=== PATIENT | male | born 1970 | race Caucasian/White ===

== ENCOUNTER 2016-08-03 17:31 | Inpatient (IN) | payer OTHER ==
[2016-08-03 17:39] VITALS: BMI 28.0
--- NOTE | 2016-08-03 20:02 | PDOC ---
History of Present Illness - General History Source: Patient <Luiz Noriega - Last Filed: 08/03/16 21:56> - General History Source: Patient Exam Limitations: No Limitations - History of Present Illness Initial Comments: 08/03/16 20:32 The patient is a 45 year old male with a significant past medical history of DVT on the right leg, pulmonary embolism, diabetes and asthma who presents to the ED with complaints of right leg swelling and right leg pain. The patient reports he was previously taking lovenox for years when his PCP changed him to xarelto several months ago. Patient reports right lower extremity edema that started several weeks ago. Patient also reports pain to the right lower extremity starting from his right mid thigh radiating to his right mid calf for several days. Patient also reports dull chest pain secondary to deep inspiration. Patient reports he stopped taking xarelto. Denies fever or chills. Denies shortness of breath or cough. Denies any other symptoms. <Jabier Antoine - Last Filed: 08/04/16 01:04> - General Chief Complaint: Pain, Acute Stated Complaint: RT LEG PAIN AND KNEE Time Seen by Provider: 08/03/16 19:56 Past History - Past Medical History Diabetes: Yes - Surgical History Abdominal Surgery: Yes (EXPLORATORY LAP) - Psycho/Social/Smoking Cessation Hx Suicidal Ideation: No Smoking Status: Yes Smoking History: Current every day smoker Number of Cigarettes Smoked Daily: 10 Information on smoking cessation initiated: No Hx Alcohol Use: Yes ("ONCE IN A WHILE") Drug/Substance Use Hx: No <Luiz Noriega - Last Filed: 08/03/16 21:56> <Jabier Antoine - Last Filed: 08/04/16 01:04> - Past Medical History Allergies/Adverse Reactions: Allergies Allergy/AdvReac Type Severity Reaction Status Date / Time Penicillins Allergy Verified 08/03/16 17:40 warfarin sodium Allergy Verified 08/03/16 17:40 [From Coumadin] Home Medications: Ambulatory Orders Doxycycline Hyclate [Vibratab -] 100 mg PO BID #14 tablet 07/15/12 Unobtainable Home Med List 0 dose .ROUTE UTDICT 07/15/12 Review of Systems - Review of Systems Able to Perform ROS?: Yes Comments:: 08/03/16 20:32 CONSTITUTIONAL: No reported: Fever, Chills, Diaphoresis, Generalized Weakness, Malaise, Loss of Appetite HEENT: No reported: Rhinorrhea, Nasal Congestion, Throat Pain, Throat Swelling, Difficulty Swallowing, Mouth Swelling, Ear Pain, Eye Pain, Visual Changes CARDIOVASCULAR: No reported: Chest Pain, Syncope, Palpitations, Irregular Heart Rate, Lightheadedness, Peripheral Edema RESPIRATORY: No reported: Cough, Shortness of Breath, SOB with Exertion, Orthopnea, Wheezing , Stridor, Hemoptysis GASTROINTESTINAL: No reported: Abdominal pain, Abdominal Distension, Nausea, Vomiting, Diarrhea, Constipation, Melena, Hematochezia GENITOURINARY: No reported: Dysuria, Frequency, Urgency, Hesitancy, Flank Pain, Genital Pain MUSCULOSKELETAL: No reported: Myalgia, Arthralgia, Joint Swelling, Back pain, Neck Pain EXTREMITIES: + right leg swelling, right leg pain SKIN: No reported: Rash, Itching, Pallor HEMEATOLOGIC/IMMUNOLOGIC: No reported: Easy Bleeding, Easy Bruising, Lymphadenopathy, Frequent infections ENDOCRINE: No reported: Unexplained Weight Gain, Unexplained Weight Loss, Heat Intolerance , Cold Intolerance NEUROLOGIC: No reported: Headache, Focal Weakness, Paresthesias, Vertigo, Lightheadedness, Unsteady Gait, Seizure, Mental Status Changes, Incontinence PSYCHIATRIC: No reported: Anxiety, Depression All Other Systems: Reviewed and Negative <Jabier Antoine - Last Filed: 08/04/16 01:04> *Physical Exam - Vital Signs Last Vital Signs Temp Pulse Resp BP Pulse Ox 98.4 F 84 16 124/76 100 08/03/16 17:36 08/03/16 17:36 08/03/16 17:36 08/03/16 17:36 08/03/16 17:36 <Luiz Noriega - Last Filed: 08/03/16 21:56> - Vital Signs Last Vital Signs Temp Pulse Resp BP Pulse Ox 98.4 F 84 16 124/76 100 08/03/16 17:36 08/03/16 17:36 08/03/16 17:36 08/03/16 17:36 08/03/16 17:36 - Physical Exam Comments: 08/03/16 20:33 GENERAL: + dandruff. Well developed, well nourished. Awake and alert. No acute distress. HEENT: Normocephalic, atraumatic. PERRLA, EOMI. No conjunctival pallor. Sclera are non- icteric. Moist mucous membranes. Oropharynx is clear. NECK: Supple. Full ROM. No JVD. Carotid pulses 2+ and symmetric, without bruits. No thyromegaly. No lymphadenopathy. CARDIOVASCULAR: Regular rate and rhythm. No murmurs, rubs, or gallops. Distal pulses are 2+ and symmetric. PULMONARY: No evidence of respiratory distress. Lungs clear to auscultation bilaterally. No wheezing, rales or rhonchi. ABDOMINAL: Soft. Non-tender. Non-distended. No rebound or guarding. No organomegaly. Normoactive bowel sounds. MUSCULOSKELETAL Normal range of motion at all joints. No bony deformities or tenderness. No CVA tenderness. EXTREMITIES: + right lower extremity swelling, tender to palpation on the medial aspect. No cyanosis. No clubbing. SKIN: + skin color changes on the distal aspect of the right lower extremity. Warm and dry. Normal capillary refill. No rashes. No jaundice. NEUROLOGICAL: Alert, awake, appropriate. Cranial nerves 2-12 intact. No deficits to light touch and temperature in face, upper extremities and lower extremities. No motor deficits in the in face, upper extremities and lower extremities. Normoreflexic in the upper and lower extremities. Normal speech. Toes are down- going bilaterally. Gait is normal without ataxia. PSYCHIATRIC: Cooperative. Good eye contact. Appropriate mood and affect. <Jabier Antoine - Last Filed: 08/04/16 01:04> Heart Score/ECG Review #1 08/04/16 01:04 Reviewed and interpreted by Dr. Noriega: Impression: Normal sinus rhythm at 73 bpm IL interval 166 ms QRS duration 100 ms <Jabier Antoine - Last Filed: 08/04/16 01:04> ED Treatment Course - LABORATORY CBC & Chemistry Diagram: 08/03/16 23:09 08/03/16 23:09 - RADIOLOGY Radiograph Interpretation: 08/03/16 21:41 US/DUPLEX VASCUL US 2LEGS Impression: Right leg DVT is identified There is no definite evidence of left leg DVT No prior imaging studies are available at this facility for direct comparison Reported by: Saurav Bray <Jabier Antoine - Last Filed: 08/04/16 01:04> Medical Decision Making - Medical Decision Making 08/03/16 21:56 Dr. Noriega: The scribe's documentation has been prepared under my direction and personally reviewed by me in its entirery. I confirm that the note above accurately reflects all work, treatment, procedures, and medical decision making performed by me. Patient with right lower We'll admit to [facility]. Dr. Dove place orders for patient's admission. <Luiz Noriega - Last Filed: 08/03/16 21:56> *DC/Admit/Observation/Transfer - Discharge Dispostion Admit: Yes <Luiz Noriega - Last Filed: 08/03/16 21:56> - Attestations Scribe Attestion: 08/03/16 20:33 Documentation prepared by Jabire Antoine, acting as medical science liaison for Luiz Noriega MD <Jabier Antoine - Last Filed: 08/04/16 01:04> Diagnosis at time of Disposition: Right leg DVT Qualifiers: Affected thrombotic vein of extremity: popliteal Chronicity: chronic Qualified Code(s): I82.531 - Chronic embolism and thrombosis of right popliteal vein - Referrals
[2016-08-03] MEDS ORDERED: ENOXAPARIN NA (PORCINE) 80 MG/0.8 ML DISP.SYRIN SQ SCH (22:30)
[2016-08-03 23:19] LABS: BASOPHIL 0.6 % (0-2.0); EOSINOPHIL 1.6 % (0-4.5); MCH 26.6 pg (25.7-33.7); MCHC 31.8 g/dl (32.0-35.9); MEAN CELL VOLUME 83.6 fl (80-96); MEAN PLT VOLUME 8.3 fl (7.5-11.1); NEUTROPHILS 50.7 % (42.8-82.8); PLATELET COUNT 292 K/MM3 (134-434); RDW 15.2 % (11.9-15.9)
[2016-08-03 23:46] LABS: ALBUMIN 3.9 g/dl (3.4-5.0); ALK PHOS 87 U/L (45-117); ANION GAP 12 (8-16); BILIRUBIN,TOTAL 0.5 mg/dL (0.2-1.0); CO2 27 mmol/L (21-32); CREATININE 1.2 mg/dL (0.7-1.3); GLUCOSE,RANDOM 92 mg/dL (74-106); SGPT/ALT 18 U/L (12-78); TOT PROT 7.7 g/dl (6.4-8.2)
[2016-08-03 23:49] LABS: TROPONIN I < 0.02 ng/ml (0.00-0.05)
[2016-08-03 23:58] LABS: INR 1.41 (0.82-1.09); PROTHROMBIN TIME (PATIENT) 15.6 SEC (9.98-11.88)
[2016-08-04 00:09] LABS: URINE APPEARANCE CLOUDY; URINE BILIRUBIN NEGATIVE (NEGATIVE); URINE BLOOD NEGATIVE (NEGATIVE); URINE COLOR YELLOW; URINE GLUCOSE (UA) NEGATIVE (NEGATIVE); URINE KETONE NEGATIVE (NEGATIVE); URINE LEUK ESTERASE NEGATIVE (NEGATIVE); URINE NITRITE NEGATIVE (NEGATIVE); URINE PROTEIN NEGATIVE (NEGATIVE); URINE UROBILINOGEN 4.0 E.U/dl E.U./dl (0.2-1.0)
[2016-08-04 00:26] LABS: SGOT/AST 22 U/L (15-37)
[2016-08-04] MEDS ORDERED: ACETAMINOPHEN 325 MG TABLET (FP) ONE (00:47)
[2016-08-04] MEDS ORDERED: oxyCODONE HCL 5 MG TABLET ONE (00:47)
[2016-08-04] MEDS: ACETAMINOPHEN 325 MG TABLET (FP) PO PRN ×3 (00:54→12:05)
[2016-08-04] MEDS: oxyCODONE HCL 5 MG TABLET PO PRN ×3 (00:54→12:02)
[2016-08-04] MEDS ORDERED: ENOXAPARIN NA (PORCINE) 80 MG/0.8 ML DISP.SYRIN SQ SCH (04:47)
[2016-08-04] MEDS ORDERED: APIXABAN 5 MG TABLET PO SCH ×2 (10:00)
--- NOTE | 2016-08-04 10:01 | HP ---
Admitting History and Physical - Past Medical History Pulmonary: Yes: Asthma, Pulmonary Embolus Heme/Onc: Yes: Hypercoaguable State, Other (DVT) Endocrine: Yes: Diabetes Mellitus - Smoking History Smoking history: Current every day smoker Aproximately how many cigarettes per day: 10 - Alcohol/Substance Use Hx Alcohol Use: Yes ("ONCE IN A WHILE") Home Medications - Allergies Allergies/Adverse Reactions: Allergies Allergy/AdvReac Type Severity Reaction Status Date / Time Penicillins Allergy Verified 08/03/16 17:40 warfarin sodium Allergy Verified 08/03/16 17:40 [From Coumadin] - Home Medications Home Medications: Ambulatory Orders Doxycycline Hyclate [Vibratab -] 100 mg PO BID #14 tablet 07/15/12 Unobtainable Home Med List 0 dose .ROUTE UTDICT 07/15/12 Review of Systems - Review of Systems Cardiovascular: denies: Chest Pain Respiratory: denies: SOB Gastrointestinal: reports: No Symptoms Genitourinary: reports: No Symptoms Musculoskeletal: reports: Extremity Pain (rt leg) Neurological: reports: No Symptoms Physical Examination Vital Signs: Vital Signs Temperature 97.4 F L 08/04/16 05:30 Pulse Rate 55 L 08/04/16 05:30 Respiratory Rate 18 08/04/16 01:15 Blood Pressure 109/55 08/04/16 05:30 O2 Sat by Pulse Oximetry (%) 97 08/04/16 01:15 Cardiovascular: Yes: Regular Rate and Rhythm Respiratory: Yes: Regular, CTA Bilaterally Gastrointestinal: Yes: Normal Bowel Sounds, Soft Extremities: Yes: Calf Tenderness, Other (varicose veins) Edema: Yes Edema: RLE: 2+ Neurological: Yes: Alert, Oriented Labs: CBC, BMP 08/03/16 23:09 08/03/16 23:09 Problem List - Problems (1) Right leg DVT Assessment/Plan: FAILED XARELTO LOVENOX 80 SQ BID CHECK PREVIOUS W/U HEM/VASCULAR Code(s): I82.401 - ACUTE EMBOLISM AND THOMBOS UNSP DEEP VEINS OF R LOW EXTREM Qualifiers: Affected thrombotic vein of extremity: popliteal Chronicity: acute Qualified Code(s): I82.431 - Acute embolism and thrombosis of right popliteal vein (2) Diabetes Assessment/Plan: BGM MONITOR Code(s): E11.9 - TYPE 2 DIABETES MELLITUS WITHOUT COMPLICATIONS (3) Asthma Assessment/Plan: NEBS Code(s): J45.909 - UNSPECIFIED ASTHMA, UNCOMPLICATED
[2016-08-04] MEDS ORDERED: PT OWN MED DRAWER 7, Y5N ONE (11:49)
[2016-08-04] MEDS ORDERED: ACETAMINOPHEN 325 MG TABLET (FP) PO PRN (12:08)
[2016-08-04] MEDS ORDERED: oxyCODONE HCL 5 MG TABLET PO PRN (12:08)
--- NOTE | 2016-08-04 13:55 | EKG ---
Test Reason : Blood Pressure : / mmHG Vent. Rate : 073 BPM Atrial Rate : 073 BPM P-R Int : 166 ms QRS Dur : 100 ms QT Int : 368 ms P-R-T Axes : 039 059 066 degrees QTc Int : 405 ms NORMAL SINUS RHYTHM NORMAL ECG NO PREVIOUS ECGS AVAILABLE Confirmed by MD MATT, SUE ([id number]) on 08/04/2016 1:54:55 PM Referred By: Overread By: SUE GUTIERREZ MD
--- NOTE | 2016-08-04 15:58 | CONSULT ---
Consult - text type - Consultation Consultation Note: The patient is a 45 year old male with a significant past medical history of DVT of the right leg, pulmonary embolism, diabetes and asthma who presents to the ED with complaints of right leg swelling and right leg pain. The patient reports he was previously taking lovenox for years when his PCP changed him to xarelto several months ago. Patient reports right lower extremity edema that started several weeks ago. Patient also reports pain to the right lower extremity starting from his right mid thigh radiating to his right mid calf for several days. Patient also reports dull chest pain on deep inspiration. Denies fever or chills. Denies shortness of breath or cough. Denies any other symptoms. 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 Also h/o PE. No ivc filter. Was on coumadin and was switched to lovenox due to failure??? per patient and then to Xeralto more recently over last several months Colonoscopy 3 yrs. ago - Surgical History Abdominal Surgery: Yes (EXPLORATORY LAP) - Psycho/Social/Smoking Cessation Hx Smoking Status: Yes Smoking History: Current every day smoker Number of Cigarettes Smoked Daily: 10 family h/o no bleeding/clotting diathesis. no cancer Allergies/Adverse Reactions: Allergies Allergy/AdvReac Type Severity Reaction Status Date / Time Penicillins Allergy Verified 08/03/16 17:40 warfarin sodium Allergy Verified 08/03/16 17:40 [From Coumadin] Home Medications: Ambulatory Orders Doxycycline Hyclate [Vibratab -] 100 mg PO BID #14 tablet 07/15/12 Unobtainable Home Med List 0 dose .ROUTE UTDICT 07/15/12 Current Medications Acetaminophen (Tylenol -) 650 mg PO Q6H PRN PRN Reason: FEVER OR PAIN Last Admin: 08/04/16 12:05 Dose: 325 mg Acetaminophen (Tylenol -) 325 mg PO Q4H PRN PRN Reason: PAIN Stop: 08/07/16 12:07 Docusate Sodium (Colace -) 300 mg PO HS PATRICIO Enoxaparin Sodium (Lovenox -) 90 mg SQ Q12H PATRICIO Oxycodone HCl (Roxicodone -) 5 mg PO Q6H PRN PRN Reason: PAIN Last Admin: 08/04/16 12:02 Dose: 5 mg Oxycodone HCl (Roxicodone -) 5 mg PO Q4H PRN PRN Reason: PAIN Phytonadione (Mephyton -) 5 mg PO DAILY PATRICIO Stop: 08/06/16 10:01 Last Admin: 08/04/16 17:19 Dose: 5 mg *Physical Exam - Vital Signs Last Vital Signs Temp Pulse Resp BP Pulse Ox 98.4 F 84 16 124/76 100 08/03/16 17:36 08/03/16 17:36 08/03/16 17:36 08/03/16 17:36 08/03/16 17:36 ED Treatment Course - LABORATORY CBC & Chemistry Diagram: 08/03/16 23:09 08/03/16 23:09 - RADIOLOGY Radiograph Interpretation: 08/03/16 21:41 US/DUPLEX VASCUL US 2LEGS Impression: Right leg DVT is identified There is no definite evidence of left leg DVT No prior imaging studies are available at this facility for direct comparison Reported by: Saurav Bray A/P 45 y/o male with h/o recurrent DVTs and PE over last 20 yrs., several times, denies noncompliance, mostly worked up at [place]. 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 He had been on coumadin which was switched to lovenox due to coumadin failure per patient? Denies noncompliance. Most reently on Xeralto for last few months. Reports he was taking Xeralto until 08/02. Has intermittent rectal bleeding. Last colonoscopy 3 yrs. ago. check stool occult. Hgb 14 Now on lovenox 90 mg SC bid Mildly elevated INR--for vit. K Needs lifelong a/c with periodic reevaluation of risk/benefits. IF unable to anticoagulate due to rectal bleeding may need ivc filter---will monitor clinical course Will discuss with GI team needs age appropriate cancer screening
[2016-08-04] MEDS: PHYTONADIONE 5 MG TABLET PO SCH (17:19)
[2016-08-04] MEDS: DOCUSATE SODIUM 100 MG CAPSULE (FP) PO SCH (21:48)
[2016-08-05] MEDS: ENOXAPARIN NA (PORCINE) 100 MG/1 ML DISP.SYRIN SQ SCH ×2 (00:13→11:38)
[2016-08-05] MEDS: ACETAMINOPHEN 325 MG TABLET (FP) PO PRN (03:06)
[2016-08-05 07:46] LABS: BASOPHIL 0.4 % (0-2.0); EOSINOPHIL 3.3 % (0-4.5); MCH 27.4 pg (25.7-33.7); MCHC 32.9 g/dl (32.0-35.9); MEAN CELL VOLUME 83.3 fl (80-96); MEAN PLT VOLUME 8.2 fl (7.5-11.1); NEUTROPHILS 34.3 % (42.8-82.8); PLATELET COUNT 254 K/MM3 (134-434); RDW 15.1 % (11.9-15.9); WHITE BLOOD COUNT 5.4 K/mm3 (4.0-10.0)
[2016-08-05 08:13] LABS: ALBUMIN 3.4 g/dl (3.4-5.0); ANION GAP 7 (8-16); BILIRUBIN,TOTAL 0.2 mg/dL (0.2-1.0); CALCIUM 8.6 mg/dL (8.5-10.1); CO2 27 mmol/L (21-32); CREATININE 0.9 mg/dL (0.7-1.3); GLUCOSE,RANDOM 91 mg/dL (74-106); SGOT/AST 11 U/L (15-37); SGPT/ALT 14 U/L (12-78); TOT PROT 6.5 g/dl (6.4-8.2)
[2016-08-05 08:18] LABS: INR 1.04 (0.82-1.09); PROTHROMBIN TIME (PATIENT) 11.5 SEC (9.98-11.88)
[2016-08-05 08:21] LABS: ACTIVATED PTT 35.6 SECONDS (26.9-34.4)
[2016-08-05 08:22] LABS: ALK PHOS 77 U/L (45-117); THYROID STIMULATING HORMONE 1.54 uIU/ml (0.358-3.74)
--- NOTE | 2016-08-05 10:36 | PN ---
Progress Note, Physician History of Present Illness: LEG PAIN - Current Medication List Current Medications: Active Medications Acetaminophen (Tylenol -) 650 mg PO Q6H PRN PRN Reason: FEVER OR PAIN Last Admin: 08/05/16 03:06 Dose: 650 mg Acetaminophen (Tylenol -) 325 mg PO Q4H PRN PRN Reason: PAIN Stop: 08/07/16 12:07 Docusate Sodium (Colace -) 300 mg PO HS PENDING SALE TO [facility] Last Admin: 08/04/16 21:48 Dose: 300 mg Enoxaparin Sodium (Lovenox -) 90 mg SQ Q12H PENDING SALE TO [facility] Last Admin: 08/05/16 00:13 Dose: 90 mg Oxycodone HCl (Roxicodone -) 5 mg PO Q6H PRN PRN Reason: PAIN Last Admin: 08/04/16 12:02 Dose: 5 mg Oxycodone HCl (Roxicodone -) 5 mg PO Q4H PRN PRN Reason: PAIN Last Admin: 08/05/16 03:05 Dose: 5 mg Phytonadione (Mephyton -) 5 mg PO DAILY PENDING SALE TO [facility] Stop: 08/06/16 10:01 Last Admin: 08/04/16 17:19 Dose: 5 mg - Objective Vital Signs: Vital Signs Temperature 97.8 F 08/05/16 06:00 Pulse Rate 70 08/05/16 06:00 Respiratory Rate 17 08/04/16 21:00 Blood Pressure 100/56 08/05/16 06:00 O2 Sat by Pulse Oximetry (%) 97 08/04/16 21:00 Cardiovascular: Yes: Regular Rate and Rhythm Respiratory: Yes: Regular, CTA Bilaterally Gastrointestinal: Yes: Normal Bowel Sounds, Soft Edema: Yes Edema: RLE: 2+ Labs: CBC, BMP 08/05/16 06:00 08/05/16 06:00 INR, PTT INR 1.04 (0.82-1.09) 08/05/16 06:00 Problem List - Problems (1) Right leg DVT Assessment/Plan: FAILED XARELTO LOVENOX 80 SQ BID CHECK PREVIOUS W/U HEM NOTED VASCULAR CONSULT Code(s): I82.401 - ACUTE EMBOLISM AND THOMBOS UNSP DEEP VEINS OF R LOW EXTREM Qualifiers: Affected thrombotic vein of extremity: popliteal Chronicity: acute Qualified Code(s): I82.431 - Acute embolism and thrombosis of right popliteal vein (2) Diabetes Assessment/Plan: BGM MONITOR Code(s): E11.9 - TYPE 2 DIABETES MELLITUS WITHOUT COMPLICATIONS (3) Asthma Assessment/Plan: NEBS Code(s): J45.909 - UNSPECIFIED ASTHMA, UNCOMPLICATED (4) Rectal bleed Assessment/Plan: HGB STABLE GI CONSULT Code(s): K62.5 - HEMORRHAGE OF ANUS AND RECTUM
[2016-08-05] MEDS: PHYTONADIONE 5 MG TABLET PO SCH (11:38)
[2016-08-05] MEDS ORDERED: PT OWN MED DRAWER 7, Y5N ONE (11:38)
[2016-08-05 12:05] LABS: FERRITIN 122.799 ng/ml (16.4-293.9)
--- NOTE | 2016-08-05 13:29 | CONSULT ---
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 WHEN I SAW PATIENT HE WAS UPSET THAT HIS DIET WAS CHANGED TO CLEAR LIQUID AND WANTS TO GO BACK ON SOLID FOOD. HE STATES THAT HE HAS NORMAL BM TODAY AND WHEN HE WAS CLEANING HIMSELF HE NOTICED BLOOD ON THE TOILET PAPER. THE WATER IN THE TOILET WAS PINK AND THERE WAS BLOOD ON THE STOOL . HE HAD NO RECTAL OR ANL PAIN. WHEN ASKED IF HE HAS HAD BLEEDING BEFORE HE STATES THAT HE CAN'T REMEMBER. HE HAD A COLONOSCOPY YEARS AGO. HE CAN NOT REMEMBER WHY BUT THINKS IT WAS NEGATIVE. HE HAS BEEN ON ANTICOAGULATION FOR YEASRS. HE STARTED ON COUMADIN BUT HAD A RARE REACTION TO IT AND IT WAS DISCONTINUED. HE WAS THEN PLACED ON XARELTO. I DO NOT KNOW IF HE HAS HAD RECURRENT CLOTS WHILE ON ANTICOAGULATION PRIOR TO THIS ADMISSION. HE HAS HAS HEMATURIA. IN [place] IT WAS RECENT RECOMMENDED THAT HE HAVE AN IVC FILTER PLACED BUT HE NEVER GOT AROUND TO IT. 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: Alzheimer's, CVA, Dementia, Migraine, Multiple Sclerosis, Peripheral Neuropathy, Parkinson's, Seizure, Syncope, TIA, Vertigo, Other Cardio/Vascular: Yes: Deep Vein Thrombosis, Other (CLOTTING DISORDER ( HYPERCOAGULABLE)) Pulmonary: Yes: Asthma, Pulmonary Embolus Gastrointestinal: No: Ascites, Cancer, Constipation, Crohn's Disease, Diverticulitis, Diverticulosis, Esophageal Varices, Gastritis, GERD, GI Bleed, Hemorrhoids, Hiatal Hernia, Inflamatory Bowel Disease, Irritable Bowel Disease, Pancreatitis, Peptic Ulcer Disease, Ulcerative Colitis, Other Hepatobiliary: No: Cirrhosis, Cholelithiasis, Cholecystitis, Choledocholithiasis , Hepatitis A, Hepatitis B, Hepatitis C, Other Renal/: Yes: Hematuria Heme/Onc: Yes: Hypercoaguable State Infectious Disease: No: AIDS, C-Diff, Herpes Zoster, HIV, MRSA, STD's, Tuberculosis, VREF, Other Psych: No: Addictions, Anxiety, Bipolar, Depression, Panic, Psychosis, Schizophrenia, Other Musculoskeletal: No: Bursitis, Chronic low back pain, Hemiparesis, Hemiplegia, Osteoarthritis, Paraplegia, Other Rheumatology: No: Fibromyalgia, Gout, Lupus, Rheumatoid Arthritis, Sarcoidosis, Vasculitis, Other ENT: No: Allergic Rhinitis, Sinusitis, Other Endocrine: Yes: Diabetes Mellitus - Alcohol/Substance Use Hx Alcohol Use: Yes ("ONCE IN A WHILE") - Smoking History Smoking history: Current every day smoker Aproximately how many cigarettes per day: 10 Home Medications - Allergies Allergies/Adverse Reactions: Allergies Allergy/AdvReac Type Severity Reaction Status Date / Time Penicillins Allergy Verified 08/03/16 17:40 warfarin sodium Allergy Verified 08/03/16 17:40 [From Coumadin] - Home Medications Home Medications: Ambulatory Orders Doxycycline Hyclate [Vibratab -] 100 mg PO BID #14 tablet 07/15/12 Unobtainable Home Med List 0 dose .ROUTE UTDICT 07/15/12 Family Disease History - Family Disease History Family History: Unremarkable Review of Systems - Review of Systems Constitutional: reports: No Symptoms Eyes: reports: No Symptoms HENT: reports: No Symptoms Neck: reports: No Symptoms Cardiovascular: reports: No Symptoms Respiratory: reports: No Symptoms Gastrointestinal: reports: Rectal Bleeding Genitourinary: reports: No Symptoms Musculoskeletal: reports: Extremity Pain, Muscle Pain, Other (LEG SWELLING) Physical Exam-GI Vital Signs: Vital Signs Temperature 97.8 F 08/05/16 06:00 Pulse Rate 70 08/05/16 06:00 Respiratory Rate 17 08/04/16 21:00 Blood Pressure 100/56 08/05/16 06:00 O2 Sat by Pulse Oximetry (%) 97 08/04/16 21:00 Constitutional: Yes: Other (UPSET ABOUT DIET) Eyes: Yes: Conjunctiva Clear HENT: Yes: Atraumatic Neck: Yes: WNL Cardiovascular: Yes: WNL Respiratory: Yes: WNL Gastrointestinal Inspection: Yes: WNL ...Auscultate: Yes: Normoactive Bowel Sounds ...Rectal Exam: Yes: Guaiac Negative, Other (NO MASS NO HEMORRHOIDS, NO STOOL IN VAULT BUTT BROWN MUCUS) Extremities: Yes: Calf Tenderness, Other (SWELLING) Labs: CBC, BMP 08/05/16 06:00 08/05/16 06:00 INR, PTT INR 1.04 (0.82-1.09) 08/05/16 06:00 Laboratory Tests 08/05/16 08/05/16 08/05/16 06:00 06:00 06:00 WBC 5.4 RBC 4.97 Hgb 13.6 Hct 41.4 MCV 83.3 MCHC 32.9 RDW 15.1 Plt Count 254 MPV 8.2 Neutrophils % 34.3 L D Lymphocytes % 50.2 H D Monocytes % 11.8 H Eosinophils % 3.3 D Basophils % 0.4 INR Sodium 141 Potassium 3.9 Chloride 107 Carbon Dioxide 27 Anion Gap 7 L BUN 17 Creatinine 0.9 D Creat Clearance w eGFR > 60 Random Glucose 91 Hemoglobin A1c % 6.3 H Calcium 8.6 Ferritin 122.799 Total Bilirubin 0.2 D AST 11 L D ALT 14 D Alkaline Phosphatase 77 TSH 1.54 08/05/16 06:00 WBC RBC Hgb Hct MCV MCHC RDW Plt Count MPV Neutrophils % Lymphocytes % Monocytes % Eosinophils % Basophils % INR 1.04 Sodium Potassium Chloride Carbon Dioxide Anion Gap BUN Creatinine Creat Clearance w eGFR Random Glucose Hemoglobin A1c % Calcium Ferritin Total Bilirubin AST ALT Alkaline Phosphatase TSH Problem List - Problems (1) Rectal bleed Assessment/Plan: BLEEDING SEEMS TO BE MINOR (HEMORRHOIDAL IRRITATION), HE IS GUAIAC NEGATIVE CHANGE DIET TO HIGHFIBER DIET WILL INVESTIGATE FURTHER IF BLEEDS AGAIN FOLLOW CBC Code(s): K62.5 - HEMORRHAGE OF ANUS AND RECTUM (2) Right leg DVT Assessment/Plan: PROBABLY SHOULD GET IVC FILTER, QUESTION COMPLIANCE WITH MEDICATION, THESES ISSUES PER HEMATOLOGY CONTINUE CURRENT RX Code(s): I82.401 - ACUTE EMBOLISM AND THOMBOS UNSP DEEP VEINS OF R LOW EXTREM Qualifiers: Affected thrombotic vein of extremity: popliteal Chronicity: acute Qualified Code(s): I82.431 - Acute embolism and thrombosis of right popliteal vein (3) Hypercoagulable state Code(s): D68.59 - OTHER PRIMARY THROMBOPHILIA (4) Asthma Code(s): J45.909 - UNSPECIFIED ASTHMA, UNCOMPLICATED (5) Diabetes Code(s): E11.9 - TYPE 2 DIABETES MELLITUS WITHOUT COMPLICATIONS
[2016-08-05] MEDS: oxyCODONE HCL 5 MG TABLET PO PRN (20:14)
[2016-08-05] MEDS: DOCUSATE SODIUM 100 MG CAPSULE (FP) PO SCH (21:41)
[2016-08-06] MEDS: ENOXAPARIN NA (PORCINE) 100 MG/1 ML DISP.SYRIN SQ SCH ×2 (00:01→11:25)
[2016-08-06] MEDS ORDERED: PT OWN MED DRAWER 7, Y5N ONE (09:01)
--- NOTE | 2016-08-06 09:19 | CONSULT ---
Addendum entered and electronically signed by Massiel Barnes PA 08/06/16 11:20: Dr. Darling spoke with Dr. Dove who takes care of the Mr. Garcia an an outpatient. The patient has a history of non-compliance, therefore the medical team wishes to place an IVC filter. He is npo after midnight for tomorrow. Original Note: Consultation: REQUESTING PROVIDER:For vascular surgery-Dr. Darling CONSULT REQUEST: We have been asked to surgically evaluate this patient for RLE DVT. HISTORY OF PRESENT ILLNESS:The patient is a 45 year male who states that he has been having blood clots for approximately 20 years. He has only had them in his RLE. He also has a history of PE. Over the years, he has been evaluated by a health service worker in [place] and states that he might have had a workup for a clotting disorder and was never diagnosed with a particular clotting disorder. He has taken coumadin in the past but has had a reaction to it? and until recently has been on lovenox. Currently he is taking Xarelto and has been taking his dose daily without any missed doses. His last PE was diagnosed in about 2014 and hasn't had any recent imaging of his RLE. No SOB/CP today. He does smoke 1/2 ppd of cigarettes. He RLE was swollen several days ago and the it became painful so came to the ER. Duplex reveals a RLE DVT. Also, Since admission he has had one episode of bright rectal bleeding with a BM, he hasn't had anymore bleeding but also hasn't had a bowel movement since then. PMHX: Diabetes, RLE DVT with PE, Asthma, Bowel cancer ?(several sessions of chemotherapy years ago), seizure disorder PSHX: Exp lap years ago, as above and was found to cancernous cells/recevied chemotherapy, colonoscopy several years ago-negative REVIEW OF SYSTEMS: CONSTITUTIONAL: Absent: fever, chills. CARDIOVASCULAR: Absent: chest pain, syncope Present: peripheral edema RESPIRATORY: Absent: cough, shortness of breath. GASTROINTESTINAL: Absent: abdominal pain, constipation. Present: blood per rectum with BM 2 days ago. GENITOURINARY: Absent: dysuria,hematuria MUSCULOSKELETAL: Absent: joint swelling, back pain, neck pain Present: RLE pain SKIN: Absent: rash, itching, pallor HEMATOLOGIC/IMMUNOLOGIC: Absent: easy bleeding, easy bruising, lymphadenopathy, frequent infections NEUROLOGIC: Absent: headache, focal weakness or paresthesias, PHYSICAL EXAMINATION Vital Signs Temperature 97.9 F 08/06/16 05:58 Pulse Rate 64 08/06/16 05:58 Respiratory Rate 18 08/06/16 05:58 Blood Pressure 100/60 08/06/16 05:58 O2 Sat by Pulse Oximetry (%) 95 08/05/16 21:00 GENERAL: Awake, alert, and fully oriented, in no acute distress. HEAD: Normal with no signs of trauma. EYES: Pupils equal, round and reactive to light, sclera anicteric, conjunctiva clear. LUNGS: Breath sounds equal, clear to auscultation bilaterally. No wheezes, and no crackles. No accessory muscle use. HEART: Regular rate and rhythm, normal S1 and S2 without murmur, rub or gallop. ABDOMEN: Soft, nontender, not distended, normoactive bowel sounds, no guarding, no rebound, no masses. MUSCULOSKELETAL: Normal range of motion at all joints. No bony deformities or tenderness. No CVA tenderness. UPPER EXTREMITIES: 2+ pulses, warm, well-perfused. No cyanosis. Cap refill <2 seconds. No peripheral edema. LOWER EXTREMITIES: 2+ pulses DP/PT, warm, well-perfused. mild tendneress RLE with palpation. RLE appears larger with varicosities at the ankle and right groin. LLE no tenderness or swelling/warm, DP/PT pulses. NEUROLOGICAL: Normal speech, gait not observed. PSYCH: Cooperative. Good eye contact. Appropriate mood and affect. SKIN: Warm, dry, normal turgor, no rashes or lesions noted. LABS: Laboratory Results - last 24 hr 08/05/16 08/05/16 08/05/16 06:00 06:00 11:10 Hemoglobin A1c % 6.3 H Ferritin 122.799 Cancelled US- DVT of femoral/popliteal and PT. Common femoral appears patent. No DVT to LLE. Problem List - Problems (1) Right leg DVT Assessment/Plan: Currently being treated with lovenox SQ 90mg bid S/w Dr. Darling and patient will require life/long anticoagulation. We were asked to evaluate this patient for a RLE DVT, the study mentions thrombus acute vs chonic? Dr. Darling to review the duplex study. Also noted was the development of some rectal bleeding, the medical team/ hematology are following the patient and monitoring for further rectal bleeding. If needed may place a filter but his base line hypercoaguable state is unknown and may cause further clot. Surgery to follow. Code(s): I82.401 - ACUTE EMBOLISM AND THOMBOS UNSP DEEP VEINS OF R LOW EXTREM Qualifiers: Affected thrombotic vein of extremity: popliteal Chronicity: acute Qualified Code(s): I82.431 - Acute embolism and thrombosis of right popliteal vein Visit type - Case Type Case Type: ED Admission - Emergency Emergency Visit: Yes ED Registration Date: 08/03/16 Care time: The patient presented to the Emergency Department on the above date and was hospitalized for further evaluation of their emergent condition. - New patient This patient is new to me today: Yes Date on this admission: 08/06/16 - Critical Care Critical Care patient: No
[2016-08-06] MEDS: PHYTONADIONE 5 MG TABLET PO SCH (09:42)
--- NOTE | 2016-08-06 11:09 | PN ---
Progress Note, Physician Chief Complaint: AWAKE ALERT ISSUES ON COUMADIN IN PAST EITHER NON-COMPLIANCE VERSUS ANTIBODY?? - Current Medication List Current Medications: Active Medications Acetaminophen (Tylenol -) 650 mg PO Q6H PRN PRN Reason: FEVER OR PAIN Last Admin: 08/05/16 03:06 Dose: 650 mg Acetaminophen (Tylenol -) 325 mg PO Q4H PRN PRN Reason: PAIN Stop: 08/07/16 12:07 Last Admin: 08/05/16 20:17 Dose: 325 mg Docusate Sodium (Colace -) 300 mg PO HS [facility] Last Admin: 08/05/16 21:41 Dose: 300 mg Enoxaparin Sodium (Lovenox -) 90 mg SQ Q12H [facility] Last Admin: 08/06/16 00:01 Dose: 90 mg Oxycodone HCl (Roxicodone -) 5 mg PO Q6H PRN PRN Reason: PAIN Last Admin: 08/05/16 20:14 Dose: 5 mg Oxycodone HCl (Roxicodone -) 5 mg PO Q4H PRN PRN Reason: PAIN Last Admin: 08/05/16 03:05 Dose: 5 mg - Objective Vital Signs: Vital Signs Temperature 97.9 F 08/06/16 05:58 Pulse Rate 64 08/06/16 05:58 Respiratory Rate 18 08/06/16 05:58 Blood Pressure 100/60 08/06/16 05:58 O2 Sat by Pulse Oximetry (%) 95 08/05/16 21:00 Constitutional: Yes: Mild Distress Eyes: Yes: WNL HENT: Yes: WNL Neck: Yes: WNL Cardiovascular: Yes: WNL Respiratory: Yes: WNL Gastrointestinal: Yes: WNL Genitourinary: Yes: WNL Musculoskeletal: Yes: WNL Extremities: Yes: WNL Edema: Yes Edema: RLE: 2+ Peripheral Pulses WNL: Yes Integumentary: Yes: WNL Wound/Incision: Yes: Clean/Dry Neurological: Yes: WNL ...Motor Strength: WNL Psychiatric: Yes: Other Labs: CBC, BMP 08/05/16 06:00 08/05/16 06:00 INR, PTT INR 1.04 (0.82-1.09) 08/05/16 06:00 Problem List - Problems (1) Asthma Code(s): J45.909 - UNSPECIFIED ASTHMA, UNCOMPLICATED Qualifiers: Asthma complication type: uncomplicated (2) Diabetes Code(s): E11.9 - TYPE 2 DIABETES MELLITUS WITHOUT COMPLICATIONS Qualifiers: Diabetes mellitus type: type 2 Diabetes mellitus complication status: with unspecified complications (3) Hypercoagulable state Code(s): D68.59 - OTHER PRIMARY THROMBOPHILIA (4) Right leg DVT Code(s): I82.401 - ACUTE EMBOLISM AND THOMBOS UNSP DEEP VEINS OF R LOW EXTREM Qualifiers: Affected thrombotic vein of extremity: popliteal Chronicity: acute Qualified Code(s): I82.431 - Acute embolism and thrombosis of right popliteal vein (5) Depression Code(s): F32.9 - MAJOR DEPRESSIVE DISORDER, SINGLE EPISODE, UNSPECIFIED Qualifiers: Major depression recurrence: recurrent Active/Remission status: currently active Psychotic features: without psychotic features Assessment/Plan NO SUICIDAL THOUGHTS NO HOMICIDAL PATTERNS NON-COMPLIANCE COUMADIN THERAPY? ON LOVENOX AND ELIQUIS STOP LOVENOC SHOULD HAVE IVC FILTER TO INADHERANCE TO MEDICATIONS AND OPTIMAL THERAPY
[2016-08-06 14:08] LABS: SERUM IRON 84 ug/dL (38-169); TOTAL IRON BINDING CAPACITY 274 ug/dL (250-450); UIBC 190 ug/dL (111-343)
[2016-08-06] MEDS: DOCUSATE SODIUM 100 MG CAPSULE (FP) PO SCH (21:27)
[2016-08-07] MEDS: ENOXAPARIN NA (PORCINE) 100 MG/1 ML DISP.SYRIN SQ SCH (00:02)
[2016-08-07] MEDS ORDERED: HEPARIN NA (PORCINE) 5,000 UNITS/ML 1ML VIAL ONE (07:39)
[2016-08-07] MEDS ORDERED: LIDOCAINE HCL 1%, 10 MG/ML (20ML VIAL) ONE (07:39)
[2016-08-07] MEDS ORDERED: PROPOFOL 20 ML ONE ×2 (09:53→09:56)
--- NOTE | 2016-08-07 10:19 | OP ---
Operative Note - Note: Operative Date: 08/07/16 Pre-Operative Diagnosis: DVT/PE Operation: Fluoroscopy under anesthesia Post-Operative Diagnosis: Same as Pre-op Surgeon: Сергей Darling Anesthesia: Fractional Estimated Blood Loss (mls): 0 Operative Report Dictated: Yes
--- NOTE | 2016-08-07 10:23 | PN ---
Progress Note (short form) - Note Progress Note: Vascular surgery Pt seen and examined. Pt went to OR Had fluorscopy before starting case. Fluorscopy showed IVC filter in place. image saved. Cont longterm AC. Cleared for DC from vascular standpoint. Сергей Darling DO
[2016-08-07] MEDS ORDERED: oxyCODONE HCL 5 MG TABLET PO PRN ×2 (10:28)
[2016-08-07] MEDS ORDERED: ACETAMINOPHEN 325 MG TABLET (FP) PO PRN ×2 (10:28)
[2016-08-07 10:35] VITALS: BP 101/63
--- NOTE | 2016-08-07 10:41 | OP ---
DATE OF OPERATION: 08/07/2016 PREOPERATIVE DIAGNOSIS: Deep venous thrombosis, pulmonary embolism. POSTOPERATIVE DIAGNOSIS: Deep venous thrombosis, pulmonary embolism. PROCEDURE: Fluoroscopy under anesthesia. SURGEON: Сергей Lomeli DO ANESTHESIA: Fractional. BLOOD LOSS: Zero. The patient is a 45-year-old male who comes in with a DVT, right lower extremity. He has a history of schizophrenia and does frequent a [facility]. He was on anticoagulation but seems like he stopped taking his anticoagulation and now has right lower extremity pain. Upon coming to the ER, he had a right lower extremity DVT, could be chronic, could be acute. Due to the fact that the patient is noncompliant, it was felt that the patient would need an IVC filter. Patient was consented for the procedure, understanding all risks, benefits, and alternatives and taken to the operating room. Prior to starting the procedure, patient received some anesthesia through his IV, and prior to starting, we went ahead and placed a fluoroscopy machine over his abdomen. Upon performing fluoroscopy, we were able to see that he has an IVC filter that is in place between L2 and L3. So, at this point, we decided that the procedure was no longer necessary, and patient was then taken off the operating room table and returned to the PACU in stable condition without any complications. Patient will now continue long-term anticoagulation and can be discharged home. СЕРГЕЙ LOMELI DO [employer]/[id number]
[2016-08-07] MEDS ORDERED: ENOXAPARIN NA (PORCINE) 100 MG/1 ML DISP.SYRIN SQ SCH (12:00)
[2016-08-07 14:11] VITALS: PULSE 74; TEMP 98.1
--- NOTE | 2016-08-07 15:27 | DS ---
Physical Examination Vital Signs: Vital Signs Temperature 98.1 F 08/07/16 14:00 Pulse Rate 74 08/07/16 14:00 Respiratory Rate 20 08/07/16 14:00 Blood Pressure 101/63 08/07/16 10:40 O2 Sat by Pulse Oximetry (%) 96 08/07/16 10:25 Constitutional: Yes: No Distress Eyes: Yes: WNL HENT: Yes: WNL Neck: Yes: WNL Cardiovascular: Yes: WNL Respiratory: Yes: WNL Gastrointestinal: Yes: WNL Renal/: Yes: WNL Musculoskeletal: Yes: WNL Extremities: Yes: Other Edema: Yes Edema: RLE: 1+ Peripheral Pulses WNL: Yes Integumentary: Yes: WNL Wound/Incision: Yes: Clean/Dry Neurological: Yes: WNL ...Motor Strength: WNL Psychiatric: Yes: WNL Labs: CBC, BMP 08/05/16 06:00 08/05/16 06:00 Discharge Summary Reason For Visit: RIGHT LEG DVT Current Active Problems Asthma (Acute) Depression (Acute) Diabetes (Acute) Hypercoagulable state (Acute) Rectal bleed (Acute) Right leg DVT (Acute) Procedures: Principal: doppler legs Other Procedures: admitted for ac and workup Hospital Course: heme/vasc sx workup, lovenox and dopplers done, f/u outpatient Condition: Improved - Instructions Diet, Activity, Other Instructions: reg Referrals: Jennifer Dove MD [Primary Care Provider] - Disposition: HOME - Home Medications Comprehensive Discharge Medication List: Ambulatory Orders Doxycycline Hyclate [Vibratab -] 100 mg PO BID #14 tablet 07/15/12 Unobtainable Home Med List 0 dose .ROUTE UTDICT 07/15/12 Acetaminophen [Tylenol .Regular Strength -] 650 mg PO Q6H PRN #0 tablet Docusate Sodium [Colace -] 300 mg PO HS capsule 08/07/16 Enoxaparin [Lovenox -] 90 mg SQ Q12H #60 disp.syrin 08/07/16 Phytonadione [Mephyton -] 5 mg PO DAILY tablet 08/07/16
[2016-08-07] MEDS ORDERED: DOCUSATE SODIUM 100 MG CAPSULE (FP) PO SCH (22:00)
== END 2016-08-07 17:04 | disposition home or self-care (01) | DRG 197 ==
LOC: JER 17:31 → JERBED 22:06 → J6S 08-04 01:08
PROVIDERS: ADMIT Family Medicine; ATTEND Family Medicine
PROC: B41FYZZ Fluoroscopy of Right Lower Extremity Arteries using Other Contrast (ICD-10-PCS; principal; 2016-08-07 11:00)
DX: I82.4Z1 Acute embolism and thrombosis of unspecified deep veins of right distal lower extremity (principal); I26.09 Other pulmonary embolism with acute cor pulmonale; J45.909 Unspecified asthma, uncomplicated; F32.9 Major depressive disorder, single episode, unspecified; E11.9 Type 2 diabetes mellitus without complications; D68.59 Other primary thrombophilia; F17.210 Nicotine dependence, cigarettes, uncomplicated
CPT/HCPCS: 36415; 71020-TC; 76000-TC; 80053; 81003; 82550; 82553; 82728; 83036; 83540; 83550; 84443; 84484; 85025; 85610; 85730; 86850; 86900; 86901; 93005; 93010; 93970-TC; 94760; 99283-25; J1644

== ENCOUNTER 2016-10-15 12:22 | Inpatient (IN) | payer OTHER ==
[2016-10-15] MEDS ORDERED: MAGNESIUM HYDROX 2400MG/30ML ORAL SUSPENSION 30 ML CUP PO PRN (15:01)
[2016-10-15] MEDS ORDERED: guaiFENesin/D-METHORPHAN HB 10 ML UNIT-DOSE CUPS PO PRN (15:01)
[2016-10-15] MEDS ORDERED: ACETAMINOPHEN 325 MG TABLET (FP) PO PRN (15:01)
[2016-10-15] MEDS ORDERED: NICOTINE POLACRILEX 4 MG GUM BUC PRN (15:01)
[2016-10-15] MEDS ORDERED: MAG HYDROX/AL HYDROX/SIMETH 30 ML UNIT-DOSE CUP PO PRN (15:01)
[2016-10-15] MEDS ORDERED: MENTHOL/PHENOL 1 EACH UD MM PRN (15:01)
[2016-10-15] MEDS ORDERED: IBUPROFEN 400 MG TABLET (FP) PO PRN (15:01)
[2016-10-15] MEDS ORDERED: P-EPHED 60MG/TRIPROLIDI 2.5MG TABLET PO PRN (15:01)
[2016-10-15] MEDS ORDERED: LOPERAMIDE HCL 2 MG CAPSULE PO PRN (15:01)
[2016-10-15] MEDS ORDERED: MAGNESIUM CITRATE 300 ML BOTTLE PO PRN (15:01)
[2016-10-15] MEDS ORDERED: diphenhydrAMINE HCL 50 MG CAPSULE PO PRN (15:01)
--- NOTE | 2016-10-15 15:05 | HP ---
Admission ROS [facility] Allergies/Adverse Reactions: Allergies Allergy/AdvReac Type Severity Reaction Status Date / Time Penicillins Allergy Rash Verified 10/15/16 12:46 warfarin sodium Allergy Rash Verified 10/15/16 12:46 [From Coumadin] - Ebola screening Have you traveled outside of the country in the last 21 days: No Have you had contact with anyone from an Ebola affected area: No Do you have a fever: No Patient History - Patient Medical History Hx Anemia: No Hx Asthma: Yes (albuterol inhaler) Hx Chronic Obstructive Pulmonary Disease (COPD): No Hx Cancer: No Hx Cardiac Disorders: No Hx Congestive Heart Failure: No Hx Hypertension: Yes (on medcaition) Hx Hypercholesterolemia: No Hx Pacemaker: No HX Cerebrovascular Accident: No Hx Seizures: Yes (last seizure episode was 06/2016) Hx Dementia: No Hx Diabetes: Yes (on med) Hx Gastrointestinal Disorders: No Hx Liver Disease: No Hx Genitourinary Disorders: No Hx Sexually Transmitted Disorders: No Hx Renal Disease (ESRD): No Hx Thyroid Disease: No Hx Human Immunodeficiency Virus (HIV): No (last 2015 negative) Hx Hepatitis C: No Hx Depression: Yes Hx Suicide Attempt: Yes (2012) Hx Bipolar Disorder: No Hx Schizophrenia: (schizoaffectiv edisorder) - Patient Surgical History Past Surgical History: Yes Hx Neurologic Surgery: No Hx Cataract Extraction: No Hx Cardiac Surgery: No Hx Lung Surgery: No Hx Breast Surgery: No Hx Breast Biopsy: No Hx Abdominal Surgery: Yes (EXPLORATORY LAP) Hx Appendectomy: No Hx Cholecystectomy: No Hx Genitourinary Surgery: No Hx Section: No Hx Orthopedic Surgery: No Hx Hysterectomy: No Other Surgical History: IVC filter 24 yrs ago. Anesthesia Reaction: No - PPD History Previous Implant?: Yes Documented Results: Negative w/proof Implanted On Prior R Admission?: Yes Date: 10/13/16 Results: 0 - Smoking Cessation Smoking history: Current every day smoker Have you smoked in the past 12 months: Yes Aproximately how many cigarettes per day: 20 Cigars Per Day: 0 Hx Chewing Tobacco Use: No Initiated information on smoking cessation: Yes 'Breaking Loose' booklet given: 10/15/16 - Substances Abused Alcohol Route: Oral Frequency: Daily Amount used: 2 liters whiskey/rum Age of first use: 19 Date of Last Use: 10/11/16 Cocaine Route: Inhalation Frequency: Daily Amount used: 2-3 grams Age of first use: 21 Date of Last Use: 10/10/16 [facility] Breath Alcohol Content Breath Alcohol Content: 0
[2016-10-15] MEDS ORDERED: ENOXAPARIN NA (PORCINE) 100 MG/1 ML DISP.SYRIN SQ SCH (15:15)
--- NOTE | 2016-10-15 15:15 | HP ---
Psychiatrist Admission - Data Date of interview: 10/15/16 Admission source: 3N Identifying data: This is the first 5N inpatient rehabilitation admission fo this 46 y/o male, who is single with 2 children (22 and 6 y/o) , domiciled residing in [facility],unemployed and supported on SSI benefits. Medical History: Asthma, DVT right leg, seizure, DM, IVC filter, HTN, exploratory laporitomy, smokes cigarettes 1PPD. Psychiatric History: Patient reports was diagnosed as Schizoaffective disorder, more than 5 psychiatric hospitalizations, first admission at [facility] when was at age of 17 to address depression, auditory hallucinations and suicidal thoughts, reports most recent hospitalization in August at [facility] to address deepression. Sees the psychiatrist at [facility] and currently on Seroquel 100 mg po hs and Prozac 40 mg po daily, was seen by while in detox and continued his medications. REports history of self-mutilations , reports it was "long time ago", patient has scras on his left arm. Physical/Sexual Abuse/Trauma History: denies history of sexual, phisical and verbal abuse. Allergies/Adverse Reactions: Allergies Allergy/AdvReac Type Severity Reaction Status Date / Time Penicillins Allergy Rash Verified 10/15/16 12:46 warfarin sodium Allergy Rash Verified 10/15/16 12:46 [From Coumadin] Date of last physical exam: 10/11/16 Concur with the findings of this exam: Yes - Substance Abuse/Tx History Hx Alcohol Use: Yes (wiskey/rum 2 liters) Hx Substance Use: Yes Substance Use Type: Cocaine (2 gr a day) Hx Substance Use Treatment: Yes ([place], complted trx and was in sobriety 11 years.) - Admission Criteria Previous failed treatment: Yes Poor recovery environment: Yes Comorbidities: Yes Lacks judgement: Yes Mental Status Exam - Mental Status Exam Alert and Oriented to: Time, Place, Person Cognitive Function: Good Patient Appearance: Well Groomed Mood: Sad, Anxious Affect: Appropriate, Mood Congruent Patient Behavior: Cooperative Speech Pattern: Clear, Appropriate Voice Loudness: Normal Thought Process: Intact Thought Disorder: Not Present Hallucinations: Denies Suicidal Ideation: Denies Homicidal Ideation: Denies Insight/Judgement: Fair Sleep: Poorly, Difficulty falling asleep Appetite: Fair Muscle strength/Tone: Normal Gait/Station: Normal Psychiatric Findings - Problem List ([place] 1, 2,3) (1) Cocaine dependence Current Visit: No Status: Acute Qualifiers: Substance use status: uncomplicated Qualified Code(s): F14.20 - Cocaine dependence, uncomplicated (2) Nicotine dependence Current Visit: No Status: Acute Qualifiers: Nicotine product type: cigarettes Substance use status: in withdrawal Qualified Code(s): F17.213 - Nicotine dependence, cigarettes, with withdrawal (3) Asthma Current Visit: No Status: Chronic Qualifiers: Asthma complication type: uncomplicated (4) DM2 (diabetes mellitus, type 2) Current Visit: No Status: Chronic (5) Right leg DVT Current Visit: No Status: Chronic Qualifiers: Affected thrombotic vein of extremity: popliteal Chronicity: acute Qualified Code(s): I82.431 - Acute embolism and thrombosis of right popliteal vein (6) Schizoaffective disorder Current Visit: No Status: Chronic (7) Seizure Current Visit: No Status: Chronic (8) Alcohol dependence Current Visit: Yes Status: Acute - Initial Treatment Plan Initial Treatment Plan: will continue his current medications, will add Trazodone 50 mg po hs, patient reports a good past response.
[2016-10-15] MEDS: glipiZIDE 5 MG TABLET (FP) PO SCH (17:24)
[2016-10-15] MEDS: ENOXAPARIN NA (PORCINE) 100 MG/1 ML DISP.SYRIN SQ SCH (21:46)
[2016-10-15] MEDS: QUEtiapine FUMARATE 100 MG TABLET (FP) PO SCH (21:47)
[2016-10-15] MEDS: traZODone HCL 50 MG TABLET (FP) PO SCH (21:47)
[2016-10-15] MEDS: THIAMINE HCL 100 MG TABLET (FP) PO SCH (21:47)
[2016-10-15] MEDS: PHENYTOIN NA EXTENDED 100 MG CAPSULE (FP) PO SCH (21:47)
[2016-10-16] MEDS: glipiZIDE 5 MG TABLET (FP) PO SCH ×2 (06:20→17:00)
[2016-10-16] MEDS: PRENATAL VITAMINS W/ FOLIC ACID TABLET (FP) PO SCH (09:45)
[2016-10-16] MEDS: FLUoxetine HCL 20 MG CAPSULE (FP) PO SCH (09:45)
[2016-10-16] MEDS: PHENYTOIN NA EXTENDED 100 MG CAPSULE (FP) PO SCH ×2 (09:46→21:34)
[2016-10-16] MEDS: ENOXAPARIN NA (PORCINE) 100 MG/1 ML DISP.SYRIN SQ SCH ×2 (09:46→21:34)
[2016-10-16] MEDS: NICOTINE 21 MG/24 HOURS TOPICAL PATCH TD SCH (09:49)
[2016-10-16] MEDS ORDERED: PHENYTOIN NA EXTENDED 100 MG CAPSULE (FP) PO ONE (15:19)
[2016-10-16] MEDS: traZODone HCL 50 MG TABLET (FP) PO SCH (21:33)
[2016-10-16] MEDS: QUEtiapine FUMARATE 100 MG TABLET (FP) PO SCH (21:33)
[2016-10-16] MEDS: THIAMINE HCL 100 MG TABLET (FP) PO SCH (21:33)
[2016-10-17] MEDS: glipiZIDE 5 MG TABLET (FP) PO SCH ×2 (06:20→16:39)
[2016-10-17] MEDS: PHENYTOIN NA EXTENDED 100 MG CAPSULE (FP) PO SCH ×2 (09:54→21:17)
[2016-10-17] MEDS: PRENATAL VITAMINS W/ FOLIC ACID TABLET (FP) PO SCH (09:54)
[2016-10-17] MEDS: ENOXAPARIN NA (PORCINE) 100 MG/1 ML DISP.SYRIN SQ SCH ×2 (09:55→21:16)
[2016-10-17] MEDS: NICOTINE 21 MG/24 HOURS TOPICAL PATCH TD SCH (09:56)
[2016-10-17] MEDS: FLUoxetine HCL 20 MG CAPSULE (FP) PO SCH (09:57)
[2016-10-17] MEDS ORDERED: PHENYTOIN NA EXTENDED 100 MG CAPSULE (FP) PO ONE (16:00)
[2016-10-17] MEDS: QUEtiapine FUMARATE 100 MG TABLET (FP) PO SCH (21:16)
[2016-10-17] MEDS: traZODone HCL 50 MG TABLET (FP) PO SCH (21:16)
[2016-10-17] MEDS: THIAMINE HCL 100 MG TABLET (FP) PO SCH (21:16)
[2016-10-18] MEDS: PHENYTOIN NA EXTENDED 100 MG CAPSULE (FP) PO SCH ×3 (06:39→21:45)
[2016-10-18] MEDS: glipiZIDE 5 MG TABLET (FP) PO SCH ×2 (06:39→16:48)
[2016-10-18] MEDS: PRENATAL VITAMINS W/ FOLIC ACID TABLET (FP) PO SCH (10:23)
[2016-10-18] MEDS: NICOTINE 21 MG/24 HOURS TOPICAL PATCH TD SCH (10:23)
[2016-10-18] MEDS: FLUoxetine HCL 20 MG CAPSULE (FP) PO SCH (10:23)
[2016-10-18] MEDS: ENOXAPARIN NA (PORCINE) 100 MG/1 ML DISP.SYRIN SQ SCH ×2 (10:25→21:45)
[2016-10-18 15:12] LABS: INR 0.98 (0.82-1.09); PROTHROMBIN TIME (PATIENT) 10.8 SEC (9.98-11.88)
[2016-10-18] MEDS: traZODone HCL 50 MG TABLET (FP) PO SCH (21:45)
[2016-10-18] MEDS: QUEtiapine FUMARATE 100 MG TABLET (FP) PO SCH (21:45)
[2016-10-18] MEDS: THIAMINE HCL 100 MG TABLET (FP) PO SCH (21:45)
[2016-10-19] MEDS: PHENYTOIN NA EXTENDED 100 MG CAPSULE (FP) PO SCH ×3 (06:17→21:29)
[2016-10-19] MEDS: glipiZIDE 5 MG TABLET (FP) PO SCH ×2 (06:17→16:42)
[2016-10-19] MEDS: FLUoxetine HCL 20 MG CAPSULE (FP) PO SCH (09:53)
[2016-10-19] MEDS: NICOTINE 21 MG/24 HOURS TOPICAL PATCH TD SCH (09:53)
[2016-10-19] MEDS: PRENATAL VITAMINS W/ FOLIC ACID TABLET (FP) PO SCH (09:53)
[2016-10-19] MEDS: ENOXAPARIN NA (PORCINE) 100 MG/1 ML DISP.SYRIN SQ SCH ×2 (09:54→21:27)
[2016-10-19] MEDS: QUEtiapine FUMARATE 100 MG TABLET (FP) PO SCH (21:27)
[2016-10-19] MEDS: traZODone HCL 50 MG TABLET (FP) PO SCH (21:27)
[2016-10-19] MEDS: THIAMINE HCL 100 MG TABLET (FP) PO SCH (21:28)
[2016-10-20] MEDS: PHENYTOIN NA EXTENDED 100 MG CAPSULE (FP) PO SCH ×3 (06:46→21:13)
[2016-10-20] MEDS: glipiZIDE 5 MG TABLET (FP) PO SCH ×2 (06:46→16:43)
[2016-10-20] MEDS: ENOXAPARIN NA (PORCINE) 100 MG/1 ML DISP.SYRIN SQ SCH ×2 (10:04→21:13)
[2016-10-20] MEDS: FLUoxetine HCL 20 MG CAPSULE (FP) PO SCH (10:05)
[2016-10-20] MEDS: PRENATAL VITAMINS W/ FOLIC ACID TABLET (FP) PO SCH (10:05)
[2016-10-20] MEDS: NICOTINE 21 MG/24 HOURS TOPICAL PATCH TD SCH (10:05)
[2016-10-20] MEDS: traZODone HCL 50 MG TABLET (FP) PO SCH (21:13)
[2016-10-20] MEDS: THIAMINE HCL 100 MG TABLET (FP) PO SCH (21:13)
[2016-10-20] MEDS: QUEtiapine FUMARATE 100 MG TABLET (FP) PO SCH (21:13)
[2016-10-21] MEDS: PHENYTOIN NA EXTENDED 100 MG CAPSULE (FP) PO SCH ×3 (06:27→21:24)
[2016-10-21] MEDS: glipiZIDE 5 MG TABLET (FP) PO SCH ×2 (06:27→17:03)
[2016-10-21] MEDS: NICOTINE 21 MG/24 HOURS TOPICAL PATCH TD SCH (09:59)
[2016-10-21] MEDS: PRENATAL VITAMINS W/ FOLIC ACID TABLET (FP) PO SCH (09:59)
[2016-10-21] MEDS: FLUoxetine HCL 20 MG CAPSULE (FP) PO SCH (09:59)
[2016-10-21] MEDS: ENOXAPARIN NA (PORCINE) 100 MG/1 ML DISP.SYRIN SQ SCH ×2 (09:59→21:24)
[2016-10-21] MEDS: QUEtiapine FUMARATE 100 MG TABLET (FP) PO SCH (21:24)
[2016-10-21] MEDS: THIAMINE HCL 100 MG TABLET (FP) PO SCH (21:24)
[2016-10-21] MEDS: traZODone HCL 50 MG TABLET (FP) PO SCH (21:24)
[2016-10-22] MEDS: glipiZIDE 5 MG TABLET (FP) PO SCH ×2 (06:10→16:35)
[2016-10-22] MEDS: PHENYTOIN NA EXTENDED 100 MG CAPSULE (FP) PO SCH ×3 (06:10→21:32)
[2016-10-22] MEDS: ENOXAPARIN NA (PORCINE) 100 MG/1 ML DISP.SYRIN SQ SCH ×2 (10:04→21:35)
[2016-10-22] MEDS: PRENATAL VITAMINS W/ FOLIC ACID TABLET (FP) PO SCH (10:04)
[2016-10-22] MEDS: FLUoxetine HCL 20 MG CAPSULE (FP) PO SCH (10:05)
[2016-10-22] MEDS: NICOTINE 21 MG/24 HOURS TOPICAL PATCH TD SCH (10:05)
--- NOTE | 2016-10-22 15:42 | PN ---
Psychiatric Progress Note Vital Signs: Vital Signs Period Temp Pulse Resp BP Sys/[place] Pulse Ox Last 24 Hr 98.0 F 67 18-20 112/69 Date of Session: 10/22/16 Chief Complaint:: progress update HPI: Patient is addressing alcohol, cocane, nicotine dependence comorbid Schizoaffective disoder. ROS: WNL Current Medications: Active Medications Generic Name Dose Route Start Last Admin Trade Name Freq PRN Reason Stop Dose Admin Acetaminophen 650 mg 10/15/16 15:01 Tylenol - PO Q4H PRN FEVER OR PAIN Al Hydroxide/Mg Hydroxide 30 ml 10/15/16 15:01 Mylanta Oral Suspension - PO Q6H PRN DYSPEPSIA Diphenhydramine HCl 50 mg 10/15/16 15:01 Benadryl - PO HSMR1 PRN FOR ITCHING Enoxaparin Sodium 90 mg 10/22/16 22:00 Lovenox - SQ Q12H PATRICIO Eucalyptus/Menthol/Phenol/Sorbitol 1 each 10/15/16 15:01 Cepastat Lozenge - MM Q4H PRN SORE THROAT Fluoxetine HCl 40 mg 10/16/16 10:00 10/22/16 10:05 Prozac - PO 40 mg DAILY PATRICIO Administration Glipizide 5 mg 10/15/16 16:30 10/22/16 06:10 Glucotrol - PO 5 mg BID@0700,1630 PATRICIO Administration Guaifenesin 10 ml 10/15/16 15:01 Robitussin Dm - PO Q6H PRN COUGH Ibuprofen 400 mg 10/15/16 15:01 Motrin - PO Q6H PRN PAIN Loperamide HCl 4 mg 10/15/16 15:01 Imodium - PO Q6H PRN DIARRHEA Magnesium Hydroxide 30 ml 10/15/16 15:01 Milk Of Magnesia - PO DAILY PRN CONSTIPATION Nicotine 21 mg 10/16/16 10:00 10/22/16 10:05 Nicoderm Patch - TD 21 mg DAILY PATRICIO Administration Nicotine Polacrilex 4 mg 10/15/16 15:01 Nicorette Gum - BUC Q2H PRN NICOTINE REPLACEMENT RX Phenytoin Sodium 100 mg 10/17/16 22:00 10/22/16 14:04 Dilantin - PO 100 mg TID PATRICIO Administration Multivit/Folic Acid/Iron 1 tab 10/16/16 10:00 10/22/16 10:04 Vitamins (Sjr) - PO 1 tab DAILY PATRICIO Administration Pseudoephedrine/Triprolidine 1 combo 10/15/16 15:01 Actifed - PO TID PRN NASAL CONGESTION Quetiapine Fumarate 100 mg 10/15/16 22:00 10/21/16 21:24 Seroquel - PO 100 mg HS PATRICIO Administration Thiamine HCl 100 mg 10/15/16 22:00 10/21/16 21:24 Vitamin B1 - PO 100 mg HS PATRICIO Administration Trazodone HCl 50 mg 10/15/16 22:00 10/21/16 21:24 Desyrel - PO 50 mg HS PATRICIO Administration Current Side Effect: No Lab tests ordered: No Lab tests reviewed: Yes Provider note:: Patient was referred by a medical staudent because patient has questions about his current medications. Patient reported that was on risperdal , dapakote , lithium, remeron in the past, treports the "dcotrs kept changing medicatiosn due to the sied-effects or they were not effective" Patient reports he used to hear voice male voice who introduced himself as a Anuj, he was negative and one time he told the patient to take razor alexandria and swallow which patient did, states it was 10 years ago, he ended in the hospital and had a surgery. He asked if we could change his medications , states when he is home he takes medications 11 pm and next day he was sedated and had a difficult time to go to the work, patient agredd that Seroquel 100 mg po hs (his current med) effective, he does bnot feel paranoid, denies auditory hallucinations, he reports that he feels well and not sedated at all whlei in this treatment, patient was recommended to continue take medcation at 8 or 9 pm to avoid sedatio in am. Psychoeducations and supportive therapy provided, will continue to monitor progress. Total face to face time:: 45 Mental Status Exam - Mental Status Exam Alert and Oriented to: Time, Place, Person Cognitive Function: Good Patient Appearance: Well Groomed Mood: Hopeful Affect: Appropriate, Mood Congruent Patient Behavior: Appropriate, Cooperative Speech Pattern: Clear, Appropriate Voice Loudness: Normal Thought Process: Intact, Goal Oriented Thought Disorder: Not Present Hallucinations: Denies Suicidal Ideation: Denies Homicidal Ideation: Denies Insight/Judgement: Fair Sleep: Fair Appetite: Fair Muscle strength/Tone: Normal Gait/Station: Normal Psychiatric Treatment Plan - Problem List (1) Cocaine dependence Current Visit: No Qualifiers: Substance use status: uncomplicated Qualified Code(s): F14.20 - Cocaine dependence, uncomplicated (2) Nicotine dependence Current Visit: No Qualifiers: Nicotine product type: cigarettes Substance use status: in withdrawal Qualified Code(s): F17.213 - Nicotine dependence, cigarettes, with withdrawal (3) Asthma Current Visit: No Qualifiers: Asthma complication type: uncomplicated (4) DM2 (diabetes mellitus, type 2) Current Visit: No (5) Right leg DVT Current Visit: No Qualifiers: Affected thrombotic vein of extremity: popliteal Chronicity: acute Qualified Code(s): I82.431 - Acute embolism and thrombosis of right popliteal vein (6) Schizoaffective disorder Current Visit: No (7) Seizure Current Visit: No (8) Alcohol dependence Current Visit: Yes
[2016-10-22] MEDS: traZODone HCL 50 MG TABLET (FP) PO SCH (21:32)
[2016-10-22] MEDS: THIAMINE HCL 100 MG TABLET (FP) PO SCH (21:32)
[2016-10-22] MEDS: QUEtiapine FUMARATE 100 MG TABLET (FP) PO SCH (21:32)
[2016-10-23] MEDS: PHENYTOIN NA EXTENDED 100 MG CAPSULE (FP) PO SCH ×3 (06:15→21:14)
[2016-10-23] MEDS: glipiZIDE 5 MG TABLET (FP) PO SCH ×2 (06:15→17:08)
[2016-10-23] MEDS: PRENATAL VITAMINS W/ FOLIC ACID TABLET (FP) PO SCH (10:19)
[2016-10-23] MEDS: NICOTINE 21 MG/24 HOURS TOPICAL PATCH TD SCH (10:19)
[2016-10-23] MEDS: FLUoxetine HCL 20 MG CAPSULE (FP) PO SCH (10:19)
[2016-10-23] MEDS: ENOXAPARIN NA (PORCINE) 100 MG/1 ML DISP.SYRIN SQ SCH ×3 (10:20→21:14)
[2016-10-23] MEDS: QUEtiapine FUMARATE 100 MG TABLET (FP) PO SCH (21:14)
[2016-10-23] MEDS: traZODone HCL 50 MG TABLET (FP) PO SCH (21:14)
[2016-10-23] MEDS: THIAMINE HCL 100 MG TABLET (FP) PO SCH (21:14)
[2016-10-24] MEDS: glipiZIDE 5 MG TABLET (FP) PO SCH ×2 (06:21→16:50)
[2016-10-24] MEDS: PHENYTOIN NA EXTENDED 100 MG CAPSULE (FP) PO SCH ×3 (06:21→21:12)
[2016-10-24] MEDS: FLUoxetine HCL 20 MG CAPSULE (FP) PO SCH (10:06)
[2016-10-24] MEDS: PRENATAL VITAMINS W/ FOLIC ACID TABLET (FP) PO SCH (10:06)
[2016-10-24] MEDS: NICOTINE 21 MG/24 HOURS TOPICAL PATCH TD SCH (10:06)
[2016-10-24] MEDS: ENOXAPARIN NA (PORCINE) 100 MG/1 ML DISP.SYRIN SQ SCH ×2 (10:08→21:12)
[2016-10-24] MEDS: QUEtiapine FUMARATE 100 MG TABLET (FP) PO SCH (21:12)
[2016-10-24] MEDS: THIAMINE HCL 100 MG TABLET (FP) PO SCH (21:12)
[2016-10-24] MEDS: traZODone HCL 50 MG TABLET (FP) PO SCH (21:12)
[2016-10-25] MEDS: glipiZIDE 5 MG TABLET (FP) PO SCH ×2 (06:09→16:49)
[2016-10-25] MEDS: PHENYTOIN NA EXTENDED 100 MG CAPSULE (FP) PO SCH ×3 (06:09→21:12)
[2016-10-25] MEDS: ENOXAPARIN NA (PORCINE) 100 MG/1 ML DISP.SYRIN SQ SCH ×2 (10:17→21:12)
[2016-10-25] MEDS: NICOTINE 21 MG/24 HOURS TOPICAL PATCH TD SCH (10:18)
[2016-10-25] MEDS: FLUoxetine HCL 20 MG CAPSULE (FP) PO SCH (10:19)
[2016-10-25] MEDS: PRENATAL VITAMINS W/ FOLIC ACID TABLET (FP) PO SCH (10:19)
[2016-10-25] MEDS: QUEtiapine FUMARATE 100 MG TABLET (FP) PO SCH (21:12)
[2016-10-25] MEDS: traZODone HCL 50 MG TABLET (FP) PO SCH (21:12)
[2016-10-25] MEDS: THIAMINE HCL 100 MG TABLET (FP) PO SCH (21:12)
[2016-10-26] MEDS: PHENYTOIN NA EXTENDED 100 MG CAPSULE (FP) PO SCH ×3 (06:12→21:28)
[2016-10-26] MEDS: glipiZIDE 5 MG TABLET (FP) PO SCH ×2 (06:12→16:45)
[2016-10-26] MEDS: NICOTINE 21 MG/24 HOURS TOPICAL PATCH TD SCH (09:56)
[2016-10-26] MEDS: FLUoxetine HCL 20 MG CAPSULE (FP) PO SCH (09:56)
[2016-10-26] MEDS: PRENATAL VITAMINS W/ FOLIC ACID TABLET (FP) PO SCH (09:56)
[2016-10-26] MEDS: ENOXAPARIN NA (PORCINE) 100 MG/1 ML DISP.SYRIN SQ SCH ×2 (09:58→21:27)
[2016-10-26] MEDS: traZODone HCL 50 MG TABLET (FP) PO SCH (21:28)
[2016-10-26] MEDS: THIAMINE HCL 100 MG TABLET (FP) PO SCH (21:28)
[2016-10-26] MEDS: QUEtiapine FUMARATE 100 MG TABLET (FP) PO SCH (21:28)
[2016-10-27] MEDS: PHENYTOIN NA EXTENDED 100 MG CAPSULE (FP) PO SCH ×3 (06:21→21:50)
[2016-10-27] MEDS: glipiZIDE 5 MG TABLET (FP) PO SCH ×2 (07:54→16:36)
[2016-10-27] MEDS: ENOXAPARIN NA (PORCINE) 100 MG/1 ML DISP.SYRIN SQ SCH ×2 (10:04→21:52)
[2016-10-27] MEDS: FLUoxetine HCL 20 MG CAPSULE (FP) PO SCH (10:06)
[2016-10-27] MEDS: PRENATAL VITAMINS W/ FOLIC ACID TABLET (FP) PO SCH (10:06)
[2016-10-27] MEDS: NICOTINE 21 MG/24 HOURS TOPICAL PATCH TD SCH (10:06)
[2016-10-27] MEDS: THIAMINE HCL 100 MG TABLET (FP) PO SCH (21:50)
[2016-10-27] MEDS: traZODone HCL 50 MG TABLET (FP) PO SCH (21:50)
[2016-10-27] MEDS: QUEtiapine FUMARATE 100 MG TABLET (FP) PO SCH (21:50)
[2016-10-28] MEDS: PHENYTOIN NA EXTENDED 100 MG CAPSULE (FP) PO SCH ×3 (06:27→21:50)
[2016-10-28] MEDS: glipiZIDE 5 MG TABLET (FP) PO SCH ×2 (08:02→16:35)
[2016-10-28] MEDS: ENOXAPARIN NA (PORCINE) 100 MG/1 ML DISP.SYRIN SQ SCH ×2 (10:04→21:50)
[2016-10-28] MEDS: PRENATAL VITAMINS W/ FOLIC ACID TABLET (FP) PO SCH (10:04)
[2016-10-28] MEDS: NICOTINE 21 MG/24 HOURS TOPICAL PATCH TD SCH (10:04)
[2016-10-28] MEDS: FLUoxetine HCL 20 MG CAPSULE (FP) PO SCH (10:04)
[2016-10-28] MEDS ORDERED: ALBUTEROL SO4 6.7 GM HFA INHALER IH PRN (10:54)
[2016-10-28] MEDS: THIAMINE HCL 100 MG TABLET (FP) PO SCH (21:49)
[2016-10-28] MEDS: traZODone HCL 50 MG TABLET (FP) PO SCH (21:49)
[2016-10-28] MEDS: QUEtiapine FUMARATE 100 MG TABLET (FP) PO SCH (21:49)
[2016-10-29] MEDS: PHENYTOIN NA EXTENDED 100 MG CAPSULE (FP) PO SCH ×3 (06:18→21:05)
[2016-10-29] MEDS: glipiZIDE 5 MG TABLET (FP) PO SCH ×2 (06:18→16:38)
[2016-10-29] MEDS: FLUoxetine HCL 20 MG CAPSULE (FP) PO SCH (10:16)
[2016-10-29] MEDS: NICOTINE 21 MG/24 HOURS TOPICAL PATCH TD SCH (10:16)
[2016-10-29] MEDS: PRENATAL VITAMINS W/ FOLIC ACID TABLET (FP) PO SCH (10:16)
[2016-10-29] MEDS: ENOXAPARIN NA (PORCINE) 100 MG/1 ML DISP.SYRIN SQ SCH ×2 (10:17→21:05)
[2016-10-29] MEDS: THIAMINE HCL 100 MG TABLET (FP) PO SCH (21:05)
[2016-10-29] MEDS: traZODone HCL 50 MG TABLET (FP) PO SCH (21:05)
[2016-10-29] MEDS: QUEtiapine FUMARATE 100 MG TABLET (FP) PO SCH (21:05)
[2016-10-30] MEDS: glipiZIDE 5 MG TABLET (FP) PO SCH ×2 (06:25→16:46)
[2016-10-30] MEDS: PHENYTOIN NA EXTENDED 100 MG CAPSULE (FP) PO SCH ×3 (06:25→21:07)
[2016-10-30] MEDS: NICOTINE 21 MG/24 HOURS TOPICAL PATCH TD SCH (09:52)
[2016-10-30] MEDS: FLUoxetine HCL 20 MG CAPSULE (FP) PO SCH (09:52)
[2016-10-30] MEDS: PRENATAL VITAMINS W/ FOLIC ACID TABLET (FP) PO SCH (09:52)
[2016-10-30] MEDS: ENOXAPARIN NA (PORCINE) 100 MG/1 ML DISP.SYRIN SQ SCH ×2 (09:52→21:07)
[2016-10-30] MEDS: traZODone HCL 50 MG TABLET (FP) PO SCH (21:07)
[2016-10-30] MEDS: THIAMINE HCL 100 MG TABLET (FP) PO SCH (21:07)
[2016-10-30] MEDS: QUEtiapine FUMARATE 100 MG TABLET (FP) PO SCH (21:07)
[2016-10-31] MEDS: glipiZIDE 5 MG TABLET (FP) PO SCH ×2 (06:15→16:35)
[2016-10-31] MEDS: PHENYTOIN NA EXTENDED 100 MG CAPSULE (FP) PO SCH ×3 (06:15→21:40)
--- NOTE | 2016-10-31 09:08 | PN ---
Psychiatric Progress Note Vital Signs: Vital Signs Period Temp Pulse Resp BP Sys/[place] Pulse Ox Last 24 Hr 98.2 F 76 18-18 116/80 Date of Session: 10/31/16 Chief Complaint:: "anxiety, insomnia" HPI: Patient is addressing alcohol, cocane, nicotine dependence comorbid Schizoaffective disoder. ROS: Asthma, DVT right leg, seizure, DM, IVC filter, HTN medically managed. Current Medications: Active Medications Generic Name Dose Route Start Last Admin Trade Name Freq PRN Reason Stop Dose Admin Acetaminophen 650 mg 10/15/16 15:01 Tylenol - PO Q4H PRN FEVER OR PAIN Al Hydroxide/Mg Hydroxide 30 ml 10/15/16 15:01 Mylanta Oral Suspension - PO Q6H PRN DYSPEPSIA Albuterol Sulfate 2 puff 10/28/16 10:54 10/30/16 21:09 Ventolin Hfa Inhaler - IH 2 puff Q4H PRN Administration SHORT OF BREATH/WHEEZING Diphenhydramine HCl 50 mg 10/15/16 15:01 Benadryl - PO HSMR1 PRN FOR ITCHING Enoxaparin Sodium 90 mg 10/22/16 22:00 10/30/16 21:07 Lovenox - SQ 90 mg Q12H PATRICIO Administration Eucalyptus/Menthol/Phenol/Sorbitol 1 each 10/15/16 15:01 Cepastat Lozenge - MM Q4H PRN SORE THROAT Fluoxetine HCl 40 mg 10/16/16 10:00 10/30/16 09:52 Prozac - PO 40 mg DAILY PATRICIO Administration Glipizide 5 mg 10/15/16 16:30 10/31/16 06:15 Glucotrol - PO 5 mg BID@0700,1630 PATRICIO Administration Guaifenesin 10 ml 10/15/16 15:01 Robitussin Dm - PO Q6H PRN COUGH Ibuprofen 400 mg 10/15/16 15:01 Motrin - PO Q6H PRN PAIN Loperamide HCl 4 mg 10/15/16 15:01 Imodium - PO Q6H PRN DIARRHEA Magnesium Hydroxide 30 ml 10/15/16 15:01 Milk Of Magnesia - PO DAILY PRN CONSTIPATION Nicotine 21 mg 10/16/16 10:00 10/30/16 09:52 Nicoderm Patch - TD Not Given DAILY PATRICIO Nicotine Polacrilex 4 mg 10/15/16 15:01 Nicorette Gum - BUC Q2H PRN NICOTINE REPLACEMENT RX Phenytoin Sodium 100 mg 10/17/16 22:00 10/31/16 06:15 Dilantin - PO 100 mg TID PATRICIO Administration Multivit/Folic Acid/Iron 1 tab 10/16/16 10:00 10/30/16 09:52 Vitamins (Sjr) - PO 1 tab DAILY PATRICIO Administration Pseudoephedrine/Triprolidine 1 combo 10/15/16 15:01 Actifed - PO TID PRN NASAL CONGESTION Quetiapine Fumarate 100 mg 10/15/16 22:00 10/30/16 21:07 Seroquel - PO 100 mg HS PATRICIO Administration Thiamine HCl 100 mg 10/15/16 22:00 10/30/16 21:07 Vitamin B1 - PO 100 mg HS PATRICIO Administration Trazodone HCl 100 mg 10/31/16 09:07 Desyrel - PO HS PATRICIO Current Side Effect: No Lab tests ordered: No Lab tests reviewed: Yes Provider note:: The patient reports feeling anxious at nights and unable to sleep, will increase Trazodone 100 mg po hs. Patient reports no side-effects from current medications. Total face to face time:: 10 Mental Status Exam - Mental Status Exam Alert and Oriented to: Time, Place, Person Cognitive Function: Good Patient Appearance: Well Groomed Mood: Anxious Affect: Appropriate, Mood Congruent Patient Behavior: Appropriate, Cooperative Speech Pattern: Clear, Appropriate Voice Loudness: Normal Thought Process: Intact, Goal Oriented Thought Disorder: Not Present Hallucinations: Denies Suicidal Ideation: Denies Homicidal Ideation: Denies Insight/Judgement: Fair Sleep: Poorly, Difficulty falling asleep Appetite: Fair Muscle strength/Tone: Normal Gait/Station: Normal Psychiatric Treatment Plan - Problem List (1) Cocaine dependence Current Visit: No Qualifiers: Substance use status: uncomplicated Qualified Code(s): F14.20 - Cocaine dependence, uncomplicated (2) Nicotine dependence Current Visit: No Qualifiers: Nicotine product type: cigarettes Substance use status: in withdrawal Qualified Code(s): F17.213 - Nicotine dependence, cigarettes, with withdrawal (3) Asthma Current Visit: No Qualifiers: Asthma complication type: uncomplicated (4) DM2 (diabetes mellitus, type 2) Current Visit: No (5) Right leg DVT Current Visit: No Qualifiers: Affected thrombotic vein of extremity: popliteal Chronicity: acute Qualified Code(s): I82.431 - Acute embolism and thrombosis of right popliteal vein (6) Schizoaffective disorder Current Visit: No (7) Seizure Current Visit: No (8) Alcohol dependence Current Visit: Yes
[2016-10-31] MEDS: PRENATAL VITAMINS W/ FOLIC ACID TABLET (FP) PO SCH (10:03)
[2016-10-31] MEDS: FLUoxetine HCL 20 MG CAPSULE (FP) PO SCH (10:03)
[2016-10-31] MEDS: NICOTINE 21 MG/24 HOURS TOPICAL PATCH TD SCH (10:03)
[2016-10-31] MEDS: ENOXAPARIN NA (PORCINE) 100 MG/1 ML DISP.SYRIN SQ SCH ×2 (10:04→21:42)
[2016-10-31] MEDS: QUEtiapine FUMARATE 100 MG TABLET (FP) PO SCH (21:40)
[2016-10-31] MEDS: THIAMINE HCL 100 MG TABLET (FP) PO SCH (21:40)
[2016-10-31] MEDS ORDERED: traZODone HCL 100 MG TABLET (FP) PO SCH (22:00)
[2016-11-01] MEDS: glipiZIDE 5 MG TABLET (FP) PO SCH (06:23)
[2016-11-01] MEDS: PHENYTOIN NA EXTENDED 100 MG CAPSULE (FP) PO SCH (06:23)
[2016-11-01 06:48] VITALS: BP 131/89; PULSE 65; TEMP 97.8
[2016-11-01] MEDS: FLUoxetine HCL 20 MG CAPSULE (FP) PO SCH (09:42)
[2016-11-01] MEDS: NICOTINE 21 MG/24 HOURS TOPICAL PATCH TD SCH (09:42)
[2016-11-01] MEDS: PRENATAL VITAMINS W/ FOLIC ACID TABLET (FP) PO SCH (09:42)
[2016-11-01] MEDS: ENOXAPARIN NA (PORCINE) 100 MG/1 ML DISP.SYRIN SQ SCH (09:43)
--- NOTE | 2016-11-01 10:03 | PN ---
Psychiatric Progress Note Vital Signs: Vital Signs Period Temp Pulse Resp BP Sys/[place] Pulse Ox Last 24 Hr 97.8 F 65 18-20 131/89 Date of Session: 11/01/16 Chief Complaint:: discharge visit HPI: Patient is addressing alcohol, cocane, nicotine dependence comorbid Schizoaffective disoder. ROS: Asthma, DVT right leg, seizure, DM, IVC filter, HTN medically managed. Current Medications: Active Medications Generic Name Dose Route Start Last Admin Trade Name Freq PRN Reason Stop Dose Admin Acetaminophen 650 mg 10/15/16 15:01 Tylenol - PO Q4H PRN FEVER OR PAIN Al Hydroxide/Mg Hydroxide 30 ml 10/15/16 15:01 Mylanta Oral Suspension - PO Q6H PRN DYSPEPSIA Albuterol Sulfate 2 puff 10/28/16 10:54 10/30/16 21:09 Ventolin Hfa Inhaler - IH 2 puff Q4H PRN Administration SHORT OF BREATH/WHEEZING Diphenhydramine HCl 50 mg 10/15/16 15:01 10/31/16 21:41 Benadryl - PO 50 mg HSMR1 PRN Administration FOR ITCHING Enoxaparin Sodium 90 mg 10/22/16 22:00 11/01/16 09:43 Lovenox - SQ 90 mg Q12H PATRICIO Administration Eucalyptus/Menthol/Phenol/Sorbitol 1 each 10/15/16 15:01 Cepastat Lozenge - MM Q4H PRN SORE THROAT Fluoxetine HCl 40 mg 10/16/16 10:00 11/01/16 09:42 Prozac - PO 40 mg DAILY PATRICIO Administration Glipizide 5 mg 10/15/16 16:30 11/01/16 06:23 Glucotrol - PO 5 mg BID@0700,1630 PATRICIO Administration Guaifenesin 10 ml 10/15/16 15:01 Robitussin Dm - PO Q6H PRN COUGH Ibuprofen 400 mg 10/15/16 15:01 Motrin - PO Q6H PRN PAIN Loperamide HCl 4 mg 10/15/16 15:01 Imodium - PO Q6H PRN DIARRHEA Magnesium Hydroxide 30 ml 10/15/16 15:01 Milk Of Magnesia - PO DAILY PRN CONSTIPATION Nicotine 21 mg 10/16/16 10:00 11/01/16 09:42 Nicoderm Patch - TD Not Given DAILY PATRICIO Nicotine Polacrilex 4 mg 10/15/16 15:01 Nicorette Gum - BUC Q2H PRN NICOTINE REPLACEMENT RX Phenytoin Sodium 100 mg 10/17/16 22:00 11/01/16 06:23 Dilantin - PO 100 mg TID PATRICIO Administration Multivit/Folic Acid/Iron 1 tab 10/16/16 10:00 11/01/16 09:42 Vitamins (Sjr) - PO 1 tab DAILY PATRICIO Administration Pseudoephedrine/Triprolidine 1 combo 10/15/16 15:01 Actifed - PO TID PRN NASAL CONGESTION Quetiapine Fumarate 100 mg 10/15/16 22:00 10/31/16 21:40 Seroquel - PO 100 mg HS PATRICIO Administration Thiamine HCl 100 mg 10/15/16 22:00 10/31/16 21:40 Vitamin B1 - PO 100 mg HS PATRICIO Administration Trazodone HCl 100 mg 10/31/16 22:00 10/31/16 21:40 Desyrel - PO 100 mg HS PATRICIO Administration Current Side Effect: No Lab tests ordered: No Lab tests reviewed: Yes Provider note:: Patient has completed today his treatment and met his goals. He will continue to address his issues at [facility] outpatient treatment program. Patent focused on importance of changing attitude for the utilization of supports to prevent relapses. His current medications wel tolerated, srcipts provided, patient is stable for discharge today. Total face to face time:: 25 Mental Status Exam - Mental Status Exam Alert and Oriented to: Time, Place Cognitive Function: Good Patient Appearance: Well Groomed Mood: Hopeful Affect: Appropriate, Mood Congruent Patient Behavior: Appropriate, Cooperative Speech Pattern: Clear, Appropriate Voice Loudness: Normal Thought Process: Intact, Goal Oriented Thought Disorder: Not Present Hallucinations: None, Denies Suicidal Ideation: None, Denies Homicidal Ideation: None Insight/Judgement: Good Sleep: Well Appetite: Good Muscle strength/Tone: Normal Gait/Station: Normal Psychiatric Treatment Plan - Problem List (1) Cocaine dependence Current Visit: No Qualifiers: Substance use status: uncomplicated Qualified Code(s): F14.20 - Cocaine dependence, uncomplicated (2) Nicotine dependence Current Visit: No Qualifiers: Nicotine product type: cigarettes Substance use status: in withdrawal Qualified Code(s): F17.213 - Nicotine dependence, cigarettes, with withdrawal (3) Asthma Current Visit: No Qualifiers: Asthma complication type: uncomplicated (4) DM2 (diabetes mellitus, type 2) Current Visit: No (5) Right leg DVT Current Visit: No Qualifiers: Affected thrombotic vein of extremity: popliteal Chronicity: acute Qualified Code(s): I82.431 - Acute embolism and thrombosis of right popliteal vein (6) Schizoaffective disorder Current Visit: No (7) Seizure Current Visit: No (8) Alcohol dependence Current Visit: Yes
== END 2016-11-01 10:15 | disposition home or self-care (01) | DRG 772 ==
LOC: YASAS 12:22 → Y5N 12:23
PROVIDERS: ADMIT Psychiatry & Neurology Psychiatry; ATTEND Psychiatry & Neurology Psychiatry
PROC: HZ42ZZZ Group Counseling for Substance Abuse Treatment, Cognitive-Behavioral (ICD-10-PCS; principal; 2016-10-15)
DX: F10.20 Alcohol dependence, uncomplicated (principal); F14.20 Cocaine dependence, uncomplicated; F17.213 Nicotine dependence, cigarettes, with withdrawal; F25.9 Schizoaffective disorder, unspecified; J45.909 Unspecified asthma, uncomplicated; I82.431 Acute embolism and thrombosis of right popliteal vein; I10 Essential (primary) hypertension; E11.9 Type 2 diabetes mellitus without complications; G40.909 Epilepsy, unspecified, not intractable, without status epilepticus; Z79.01 Long term (current) use of anticoagulants; Z95.828 Presence of other vascular implants and grafts
CPT/HCPCS: 36415; 80185; 85610

== ENCOUNTER 2018-05-14 10:04 | Emergency (ER) | payer OTHER ==
[2018-05-14 10:11] VITALS: BMI 41.0
--- NOTE | 2018-05-14 10:48 | PDOC ---
History of Present Illness - History of Present Illness Initial Comments: 05/14/18 13:14 Patient is a 47 year old male with a significant past medical history of schizoaffective disorder, Diabetes, Hypertension, Asthma, who presents to the ED with complaints of abdominal pain that began earlier this week. Patient reports experiencing diffuse abdominal pain as well as associated symptoms of decreased appetite, and constipation that began earlier this week and has gradually increased over time, prompting him to come into the ED for further evaluation. He reports being scheduled for routine bariatric surgery at [facility] on April 28 but states during the surgery it was cancelled due to scar tissue present. Patient reports feeling intermediate pain that began shortly after returning home. He reports after surgery he awoke in the ICU and received an EEG as well as an MRI with all results being negative. Patient reports x1 week after surgery experiencing a seizure episode, while at home, stating he suddenly woke in [facility]. Patient reports coming into the ED after being unable to sleep x3 days secondary to abdominal pain, stating he could not drive to [place] due to increase pain while driving. Denies chest pain, Sob. Denies nausea, vomiting. Denies contact with sick individuals, out of state travelling. Denies fevers, chills. Denies any other symptoms. Allergies: Flu virus, Penicillin. Coumadin Social history: Current smoker, Current alcohol use. No illicit drugs. Surgical history: Exploratory lap. PMD: Dr. Dove Surgeon: BOB Fink. [phone] <Tiburcio Mcgregor - Last Filed: 05/14/18 17:03> - General History Source: Patient Exam Limitations: No Limitations <Sola De Oliveira - Last Filed: 05/15/18 13:05> - General Chief Complaint: Urinary Problem Stated Complaint: POST OP PAIN Time Seen by Provider: 05/14/18 10:38 Past History <Tiburcio Mcgregor - Last Filed: 05/14/18 17:03> - Past Medical History Anemia: No Asthma: Yes (albuterol inhaler) Cancer: No Cardiac Disorders: No CVA: No COPD: No CHF: No Dementia: No Diabetes: Yes (on med) GI Disorders: No Disorders: No HTN: Yes (on medcaition) Hypercholesterolemia: No Kidney Stones: No Liver Disease: No Seizures: Yes (last seizure episode was 06/2016) Thyroid Disease: No - Surgical History Abdominal Surgery: Yes (EXPLORATORY LAP) Appendectomy: No Cardiac Surgery: No Cholecystectomy: No Lung Surgery: No Neurologic Surgery: No Orthopedic Surgery: No - Reproductive History Testicular Surgery: No - Suicide/Smoking/Psychosocial Hx Smoking Status: Yes Smoking History: Never smoked Have you smoked in the past 12 months: No Number of Cigarettes Smoked Daily: 20 Cigars Per Day: 0 Information on smoking cessation initiated: No 'Breaking Loose' booklet given: 10/15/16 Hx Alcohol Use: No Drug/Substance Use Hx: No Substance Use Type: Cocaine (2 gr a day) Hx Substance Use Treatment: Yes ([place], complted trx and was in sobriety 11 years.) <Sola De Oliveira - Last Filed: 05/15/18 13:05> - Past Medical History Allergies/Adverse Reactions: Allergies Allergy/AdvReac Type Severity Reaction Status Date / Time Influenza Virus Vaccines Allergy Verified 05/14/18 11:14 Penicillins Allergy Rash Verified 05/14/18 10:10 warfarin sodium Allergy Rash Verified 05/14/18 10:10 [From Coumadin] Home Medications: Ambulatory Orders Glipizide [Glucotrol -] 5 mg PO BID 10/11/16 Fluoxetine HCl [Prozac] 40 mg PO DAILY #60 capsule 10/29/16 traZODone HCL [Desyrel -] 50 mg PO HS #30 tablet 10/29/16 Albuterol Sulfate Inhaler - [Ventolin HFA Inhaler -] 2 puff IH Q4H PRN #1 inhaler 10/31/16 Enoxaparin [Lovenox -] 90 mg SQ Q12H #60 mg 10/31/16 Review of Systems - Review of Systems Able to Perform ROS?: Yes Comments:: 05/14/18 13:14 GENERAL/CONSTITUTIONAL: No: fever, chills, weakness, HEAD, EYES, EARS, NOSE AND THROAT: No: change in vision, ear pain, discharge, sore throat, throat swelling. CARDIOVASCULAR: No: chest pain, lightheadedness, palpitations, syncope RESPIRATORY: No: cough, shortness of breath, wheezing, hemoptysis, stridor. GASTROINTESTINAL: No: nausea, vomiting, diarrhea, rectal bleeding, GENITOURINARY: No: dysuria, hematuria, frequency, urgency, flank pain. MUSCULOSKELETAL: No: back pain, neck pain, joint pain, muscle swelling or pain SKIN: No: lesions, pallor, rash or easy bruising. NEUROLOGIC: No: headache, vertigo, paresthesias, weakness ENDOCRINE: No: unexplained weight gain or loss HEMATOLOGIC/LYMPHATIC: No: anemia, easy bleeding, swelling nodes <Tiburcio Mcgregor - Last Filed: 05/14/18 17:03> *Physical Exam - Vital Signs Last Vital Signs Temp Pulse Resp BP Pulse Ox 97.9 F 66 18 115/59 L 98 05/14/18 12:51 05/14/18 12:51 05/14/18 12:51 05/14/18 12:51 05/14/18 12:51 - Physical Exam Comments: 05/14/18 13:14 GENERAL: The patient is in no acute distress. HEAD: Normal with no signs of trauma. EYES: PERRLA, EOMI, sclera anicteric, conjunctiva clear. ENT: Ears normal, nares patent, oropharynx clear without exudates. Moist mucous membranes. NECK: Normal range of motion, supple without lymphadenopathy, JVD, or masses. LUNGS: Breath sounds equal, clear to auscultation bilaterally. No wheezes, and no crackles. HEART:Regular rate and rhythm, normal S1 and S2 without murmur, rub or gallop. ABDOMEN: Soft, nontender, normoactive bowel sounds. No guarding, no rebound. EXTREMITIES: Normal range of motion, no edema. No clubbing or cyanosis. No erythema, or tenderness. NEUROLOGICAL: Cranial nerves II through XII grossly intact. Normal speech. No focal neurological deficits. MUSCULOSKELETAL: Back nontender to palpation, no CVA tender <Tiburcio Mcgregor - Last Filed: 05/14/18 17:03> - Vital Signs Last Vital Signs Temp Pulse Resp BP Pulse Ox 98.4 F 85 16 120/83 98 05/14/18 10:08 05/14/18 10:08 05/14/18 10:08 05/14/18 10:08 05/14/18 10:08 <Sola De Oliveira - Last Filed: 05/15/18 13:05> ED Treatment Course - LABORATORY CBC & Chemistry Diagram: 05/14/18 11:26 05/14/18 11:26 - ADDITIONAL ORDERS Additional order review: Laboratory Results 05/14/18 05/14/18 05/14/18 12:30 11:26 11:26 PT with INR 12.70 INR 1.08 Sodium 139 Potassium 4.1 Chloride 108 H Carbon Dioxide 25 Anion Gap 7 L BUN 13 Creatinine 0.9 Creat Clearance w eGFR > 60 Random Glucose 199 H Calcium 8.9 Total Bilirubin 1.0 AST 9 L ALT 25 Alkaline Phosphatase 117 Total Protein 7.4 Albumin 3.5 Total Amylase 50 Lipase 165 Urine Color Martha Urine Appearance Clear Urine pH 6.0 Ur Specific Mitchell 1.031 Urine Protein 1+ H Urine Glucose (UA) Negative Urine Ketones Negative Urine Blood Negative Urine Nitrite Negative Urine Bilirubin 2.0 Urine Urobilinogen 4.0 e.u/dl Ur Leukocyte Esterase Negative Urine WBC (Auto) None Urine RBC (Auto) None Ur Epithelial Cells Rare Hyaline Casts 1 Urine Mucus Few 05/14/18 11:26 RBC 4.15 MCV 82.9 MCHC 31.5 L RDW 16.9 H MPV 6.8 L D Neutrophils % 69.1 D Lymphocytes % 20.0 D Monocytes % 9.4 Eosinophils % 0.9 Basophils % 0.6 - Medications Given in the ED: ED Medications Discontinued Medications Generic Name Dose Route Start Last Admin Trade Name Freq PRN Reason Stop Dose Admin Morphine Sulfate 4 mg 05/14/18 11:03 05/14/18 11:33 Morphine Injection - IVPUSH 05/14/18 11:04 4 mg ONCE ONE Administration <Tiburcio Mcgregor - Last Filed: 05/14/18 17:03> - LABORATORY CBC & Chemistry Diagram: 05/14/18 11:26 05/14/18 11:26 <Sola De Oliveira - Last Filed: 05/15/18 13:05> Medical Decision Making - Medical Decision Making Mr Garcia is a 47 yo M with a h/o Protein C deficiency h/o multiple DVTs, PE, s /p IVC filter currently on lovenox, lymphoma s/p splenectomy, 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, h/o seizure d/o Pt s/p attempted bariatric surgery 04/28, apparently they were unable to perform surgery (unclear why) Pt was admitted to the ICU for 1 week s/p this intervention, s/p MRI, EEG and Neuro consult (not started on antiepileptics) Pt apparently had a seizure 1 week after release from the hospital Pt resumed his lovenox 2 days s/p surgery Bruising had resolved several days s/p surgery Pt pain again resumed approximately 1 week ago Bruising worsened Pt states over the past 3 days, pain has worsened, it is sharp, rated between 7 and 11 No alleviating factors Pt pain worsens when he goes over the bumps in the road He is unable to have a bowel movement because it is so painful to do so He has decreased po intake Pt reports that he has to take shallow breaths 05/14/18 12:11 Laboratory Tests 05/14/18 05/14/18 05/14/18 11:26 11:26 11:26 WBC 7.5 Hgb 10.9 L Hct 34.4 L D Plt Count 436 H D INR 1.08 Sodium 139 Potassium 4.1 Chloride 108 H Carbon Dioxide 25 BUN 13 Creatinine 0.9 Random Glucose 199 H Total Amylase [address] demonstrates: Fatty liver Fluid collection right abdominal wall 05/14/18 15:35 Call placed to Pt surgeon 05/14/18 17:[address] Naik Initially requested possible surgical consult and discharge Pt seen in the ER by Dr Hamilton who recommends assessment by primary surgical team Call placed again to Dr Naik Requests transfer to [facility] Pt will be sent to Room 528 This was reviewed with the patient Will transfer Clinical Impression: abdominal pain s/p surgery, initial presentation Abdominal wall fluid collection, initial presentation <Sola De Oliveira - Last Filed: 05/15/18 13:05> *DC/Admit/Observation/Transfer - Attestations Scribe Attestion: 05/14/18 13:15 Documentation prepared by Tiburcio Mcgregor, acting as medical imaging technologist for Sola De Oliveira MD. <Tiburcio Mcgregor - Last Filed: 05/14/18 17:03> - Discharge Dispostion Decision to Admit order: No - Transfer to Acute Care Facility Accepting Physician:: [facility] - DR. NAIK <Sola De Oliveira - Last Filed: 05/15/18 13:05> Diagnosis at time of Disposition: Abdominal pain Qualifiers: Abdominal location: unspecified location Qualified Code(s): R10.9 - Unspecified abdominal pain - Discharge Dispostion Disposition: TRANSFER ACUTE CARE/OTHER HOSP Condition at time of disposition: Stable - Referrals Referrals: Jennifer Dove MD [Primary Care Provider] -
[2018-05-14] MEDS ORDERED: morphine CARPU-JECT 4 MG/1 ML DISP.SYRIN IVPUSH ONE ×3 (11:03→18:50)
[2018-05-14] MEDS ORDERED: SODIUM CHLORIDE 1,000 ML IV SCH (11:15)
[2018-05-14] MEDS ORDERED: morphine SULFATE 4 MG/ML VIAL ONE ×3 (11:29→17:33)
[2018-05-14 11:34] LABS: BASO % 0.6 % (0-2.0); EOS % 0.9 % (0-4.5); HEMATOCRIT 34.4 % (35.4-49); HEMOGLOBIN 10.9 GM/dL (11.7-16.9); MCH 26.2 pg (25.7-33.7); MCHC 31.5 g/dl (32.0-35.9); MEAN CELL VOLUME 82.9 fl (80-96); MEAN PLT VOLUME 6.8 fl (7.5-11.1); MONO % 9.4 % (3.8-10.2); NEUT % 69.1 % (42.8-82.8); PLATELET COUNT 436 K/MM3 (134-434); RBC 4.15 M/mm3 (4.00-5.60); RDW 16.9 % (11.9-15.9); WHITE BLOOD COUNT 7.5 K/mm3 (4.0-10.0)
[2018-05-14 11:47] LABS: INR 1.08 (0.83-1.09); PROTHROMBIN TIME (PATIENT) 12.7 SEC (9.7-13.0)
[2018-05-14 11:55] LABS: ALBUMIN 3.5 g/dl (3.4-5.0); ALK PHOS 117 U/L (45-117); AMYLASE 50 U/L (25-115); ANION GAP 7 MMOL/L (8-16); BLOOD UREA NITROGEN 13 mg/dL (7-18); CALCIUM 8.9 mg/dL (8.5-10.1); CHLORIDE 108 mmol/L (98-107); CO2 25 mmol/L (21-32); CREATININE 0.9 mg/dL (0.55-1.3); GLUCOSE,RANDOM 199 mg/dL (74-106); LIPASE 165 U/L (73-393); POTASSIUM 4.1 mmol/L (3.5-5.1); SGOT/AST 9 U/L (15-37); SGPT/ALT 25 U/L (13-61); SODIUM 139 mmol/L (136-145); TOT PROT 7.4 g/dl (6.4-8.2)
[2018-05-14 12:42] LABS: URINE APPEARANCE CLEAR; URINE COLOR AMBER; URINE GLUCOSE (UA) NEGATIVE (NEGATIVE); URINE KETONE NEGATIVE (NEGATIVE); URINE LEUK ESTERASE NEGATIVE (NEGATIVE); URINE NITRITE NEGATIVE (NEGATIVE); URINE PROTEIN 1+ (NEGATIVE); URINE UROBILINOGEN 4.0 E.U/dl mg/dL (0.2-1.0)
[2018-05-14 12:49] LABS: EPI CELLS RARE /HPF (FEW); URINE HYALINE CAST 1 /lpf; URINE MUCUS FEW
--- NOTE | 2018-05-14 16:16 | CONSULT ---
Consult Consult Specialty:: General Surgery Reason for Consultation:: Abdominal pain - History of Present Illness Chief Complaint: Abdominal Pain History of Present Illness: 47 yo male PMH morbid, schizoaffective disorder, HIV, Diabetes, Hypertension, Asthma, who presents to the ED with complaints of abdominal pain that have persisted since his aborted bariatric procedure 04/28/2018. The pain worsened this week. but since surgery he reports decreased appetite, and constipation. His routine bariatric procedure surgery at [facility], was aborted and the patient had a brief stay in the ICU. Then 1 week after surgery experiencing a seizure episode, while at home, stating he suddenly woke in [facility]. We were asked to assess his abdomen. - History Source History Provided By: Patient, Medical Record Limitations to Obtaining History: No Limitations - Past Medical History Cardio/Vascular: Yes: Deep Vein Thrombosis, Other (CLOTTING DISORDER ( HYPERCOAGULABLE)) Pulmonary: Yes: Asthma, Pulmonary Embolus Renal/: Yes: Hematuria Endocrine: Yes: Diabetes Mellitus - Alcohol/Substance Use Hx Alcohol Use: No - Smoking History Smoking history: Never smoked Have you smoked in the past 12 months: No Aproximately how many cigarettes per day: 20 Home Medications - Allergies Allergies/Adverse Reactions: Allergies Allergy/AdvReac Type Severity Reaction Status Date / Time Influenza Virus Vaccines Allergy Verified 05/14/18 11:14 Penicillins Allergy Rash Verified 05/14/18 10:10 warfarin sodium Allergy Rash Verified 05/14/18 10:10 [From Coumadin] - Home Medications Home Medications: Ambulatory Orders Glipizide [Glucotrol -] 5 mg PO BID 10/11/16 Fluoxetine HCl [Prozac] 40 mg PO DAILY #60 capsule 10/29/16 traZODone HCL [Desyrel -] 50 mg PO HS #30 tablet 10/29/16 Albuterol Sulfate Inhaler - [Ventolin HFA Inhaler -] 2 puff IH Q4H PRN #1 inhaler 10/31/16 Enoxaparin [Lovenox -] 90 mg SQ Q12H #60 mg 10/31/16 Review of Systems - Review of Systems Constitutional: denies: Chills, Fever, Unintentional Wgt. Loss Eyes: denies: Blind Spots, Recent Change in Vision HENT: denies: Difficult Swallowing, Throat Pain, Toothache Neck: denies: Decreased ROM, Tenderness Cardiovascular: denies: Chest Pain, Palpitations Respiratory: denies: Cough Gastrointestinal: reports: Abdominal Pain. denies: Constipation, Diarrhea, Other Genitourinary: denies: Dysuria, Flank Pain Breasts: reports: No Symptoms Reported. denies: Pain Musculoskeletal: denies: Extremity Pain, Muscle Pain, Muscle Cramps, Muscle Weakness Integumentary: reports: Bruising (entire abdomen since surgery) Neurological: denies: Seizure, Syncope Endocrine: denies: Unexplained Weight Gain, Unexplained Weight Loss Hematology/Lymphatic: denies: Easily Bruised, Excessive Bleeding Psychiatric: denies: Anxiety, Depression Physical Exam Vital Signs: Vital Signs Temperature 97.9 F 05/14/18 14:38 Pulse Rate 68 05/14/18 14:38 Respiratory Rate 17 05/14/18 14:38 Blood Pressure 116/77 05/14/18 14:38 O2 Sat by Pulse Oximetry (%) 99 05/14/18 14:38 Vital Signs Period Temp Pulse Resp BP Sys/[place] Pulse Ox Last 24 Hr 97.9 F-98.4 F 66-85 16-18 115-120/59-83 98-99 Constitutional: Yes: Well Nourished, No Distress, Calm, Obese Eyes: Yes: Conjunctiva Clear, EOM Intact HENT: Yes: Atraumatic, Normocephalic Neck: Yes: Supple Cardiovascular: Yes: Regular Rate and Rhythm, S1, S2 Gastrointestinal: Yes: Normal Bowel Sounds, Soft, Abdomen, Obese, Tenderness ( RUQ anddominal tenderness), Tenderness, Rebound, Other (healed midline laparotomy, significant diffuse echymosis on the anterior left abdominal wall). No: Ascites, Hepatomegaly, Pulsatile Mass, Rectal Bleeding, Vomiting ...Rectal Exam: Yes: Deferred Renal/: No: CVA Tenderness - Left, CVA Tenderness - Right Breast(s): Yes: Gynecomastia Musculoskeletal: No: Muscle Pain, Muscle Weakness Extremities: No: Cool, Cyanosis Edema: No Peripheral Pulses WNL: Yes Integumentary: No: Jaundice, Rash Wound/Incision: Yes: Clean/Dry, Well Approximated, Open to air, Bleeding, Other (massive bruising) Neurological: Yes: Alert, Oriented Psychiatric: Yes: Alert, Oriented Labs: CBC, BMP 05/14/18 11:26 05/14/18 11:26 Imaging - Results Cat Scan: Report Reviewed, Image Reviewed (5cm RUQ possible hematoma Right rectus sheath? may be intraabdominal collection) Problem List - Problems (1) Surgical complication Assessment/Plan: 47yo male MMP s/p aborted bariatric procedure 04/28/2018 at [facility] Dr. Rain ? Now an anterior intraabdominal collection RUQ, hemodunamically stable, no peritonitis NPO and IVF hydration Transfer to [facility] for evaluation by his surgeon May require a simple IR drainage, however given the potential for procedural complication requiring surgical intervention he would be best served to be at a tertiary care center with his most recent treating surgeon. Thank you for the opportunity to participate in the care of this patient. Code(s): T81.9XXA - UNSPECIFIED COMPLICATION OF PROCEDURE, INITIAL ENCOUNTER Qualifiers: Surgical complication system/body Area: musculoskeletal system Surgical complication type: hematoma Timing of complication: postoperative complication Procedure type: non-musculoskeletal Qualified Code(s): M96.841 - Postprocedural hematoma of a musculoskeletal structure following other procedure (2) Alcohol dependence Code(s): F10.20 - ALCOHOL DEPENDENCE, UNCOMPLICATED Qualifiers: Substance use status: in remission Qualified Code(s): F10.21 - Alcohol dependence, in remission (3) Depression Code(s): F32.9 - MAJOR DEPRESSIVE DISORDER, SINGLE EPISODE, UNSPECIFIED Qualifiers: Major depression recurrence: recurrent Active/Remission status: currently active Psychotic features: without psychotic features (4) Asthma Code(s): J45.909 - UNSPECIFIED ASTHMA, UNCOMPLICATED Qualifiers: Asthma complication type: uncomplicated (5) DM2 (diabetes mellitus, type 2) Code(s): E11.9 - TYPE 2 DIABETES MELLITUS WITHOUT COMPLICATIONS Qualifiers: Diabetes mellitus intermediate accountant insulin use: unspecified intermediate accountant insulin use status Chronic kidney disease stage: unspecified stage (6) Schizoaffective disorder Code(s): F25.9 - SCHIZOAFFECTIVE DISORDER, UNSPECIFIED Qualifiers: Schizoaffective disorder type: unspecified Qualified Code(s): F25.9 - Schizoaffective disorder, unspecified
[2018-05-14 20:08] VITALS: BP 126/68; PULSE 66; TEMP 97.8
== END 2018-05-14 20:08 | disposition short-term general hospital (02) ==
LOC: JER 10:04
PROC: 3E033NZ Introduction of Analgesics, Hypnotics, Sedatives into Peripheral Vein, Percutaneous Approach (ICD-10-PCS; principal; 2018-05-14)
DX: R10.9 Unspecified abdominal pain (principal); J45.909 Unspecified asthma, uncomplicated; E11.9 Type 2 diabetes mellitus without complications; I10 Essential (primary) hypertension; R56.9 Unspecified convulsions
CPT/HCPCS: 36415; 71275-TC; 74177-TC; 80053; 81003; 81015; 82150; 83690; 85025; 85610; 86850; 86900; 86901; 87086; 96374; 96376; 99284-25; J7030

== ENCOUNTER 2018-05-29 23:02 | Emergency (ER) | payer OTHER ==
[2018-05-29 23:13] VITALS: BP 121/84; PULSE 99; TEMP 97.9; BMI 41.1
--- NOTE | 2018-05-30 00:01 | PDOC ---
History of Present Illness - General Chief Complaint: Pain, Acute Stated Complaint: POST OP PAIN - History of Present Illness Initial Comments: The patient is a 47M w/ a history of aborted bariatric surgery 2/2 multiple adhesions, HIV, T2DM, and recent RUQ intra-abdominal fluid collection s/p drain and removal approximately 1 wk ago. Patient reports several days of generalized abdominal pain that has since localized to RLQ abdominal pain. The patient endorses associated NBNB vomiting x2 today. Patient denies drainage from old HENRY drain site, surrounding redness, or increased pain near the site Denies fevers/chills, chest pain, shortness of breath, or changes in sensation Denies diarrhea, blood in stool, dysuria, hematuria 05/30/18 00:09 Past History - Past Medical History Allergies/Adverse Reactions: Allergies Allergy/AdvReac Type Severity Reaction Status Date / Time Influenza Virus Vaccines Allergy Verified 05/14/18 11:14 Penicillins Allergy Rash Verified 05/14/18 10:10 warfarin sodium Allergy Rash Verified 05/14/18 10:10 [From Coumadin] Home Medications: Ambulatory Orders Glipizide [Glucotrol -] 5 mg PO BID 10/11/16 Fluoxetine HCl [Prozac] 40 mg PO DAILY #60 capsule 10/29/16 traZODone HCL [Desyrel -] 50 mg PO HS #30 tablet 10/29/16 Albuterol Sulfate Inhaler - [Ventolin HFA Inhaler -] 2 puff IH Q4H PRN #1 inhaler 10/31/16 Enoxaparin [Lovenox -] 90 mg SQ Q12H #60 mg 10/31/16 Oxycodone HCl 5 mg PO Q6H PRN #12 tablet MDD 4 tablets 05/30/18 Anemia: No Asthma: Yes (albuterol inhaler) Cancer: No Cardiac Disorders: No CVA: No COPD: No CHF: No Dementia: No Diabetes: Yes (on med) GI Disorders: No Disorders: No HTN: Yes (on medcaition) Hypercholesterolemia: No Kidney Stones: No Liver Disease: No Seizures: Yes (last seizure episode was 06/2016) Thyroid Disease: No - Surgical History Abdominal Surgery: Yes (EXPLORATORY LAP) Appendectomy: No Cardiac Surgery: No Cholecystectomy: No Lung Surgery: No Neurologic Surgery: No Orthopedic Surgery: No - Reproductive History Testicular Surgery: No - Suicide/Smoking/Psychosocial Hx Smoking Status: Yes Smoking History: Former smoker Have you smoked in the past 12 months: Yes Number of Cigarettes Smoked Daily: 1 If you are a former smoker, when did you quit?: 2 days [employer] Cigars Per Day: 0 Information on smoking cessation initiated: No 'Breaking Loose' booklet given: 10/15/16 Hx Alcohol Use: No Drug/Substance Use Hx: No Substance Use Type: Cocaine (2 gr a day) Hx Substance Use Treatment: Yes (CONNIE, complted trx and was in sobriety 11 years.) Review of Systems - Review of Systems Able to Perform ROS?: Yes Comments:: GENERAL/CONSTITUTIONAL: No fever or chills. No weakness HEAD, EYES, EARS, NOSE AND THROAT: No change in vision. No ear pain or discharge. No sore throat CARDIOVASCULAR: No chest pain or shortness of breath RESPIRATORY: No cough, wheezing, or hemoptysis GASTROINTESTINAL: per HPI GENITOURINARY: No dysuria, frequency, or change in urination MUSCULOSKELETAL: No joint or muscle swelling or pain. No neck or back pain SKIN: No rash NEUROLOGIC: No vertigo, loss of consciousness, or change in strength/sensation ENDOCRINE: No increased thirst. No abnormal weight change HEMATOLOGIC/LYMPHATIC: +hx of DVT, IVC filter in place ALLERGIC/IMMUNOLOGIC: No hives or skin allergy 05/30/18 00:13 Is the patient limited Guyanese proficient: No *Physical Exam - Vital Signs Last Vital Signs Temp Pulse Resp BP Pulse Ox 97.9 F 99 H 20 121/84 99 05/29/18 23:04 05/29/18 23:04 05/29/18 23:04 05/29/18 23:04 05/29/18 23:04 - Physical Exam Comments: GENERAL: Awake, alert, and fully oriented, in mild acute distress HEAD: No signs of trauma, normocephalic, atraumatic EYES: PERRL, EOMI, sclera anicteric, conjunctiva clear ENT: Hearing grossly normal, nares patent, oropharynx clear without exudates. Moist mucosa NECK: Normal ROM, supple, no lymphadenopathy LUNGS: No distress, speaks full sentences, clear to auscultation bilaterally HEART:Regular rate and rhythm, normal S1 and S2, no murmurs appreciated, peripheral pulses normal and equal bilaterally ABDOMEN: Soft, exquisetly TTP in the RLQ w/o rebound, non-distended, well healed laparoscopic surgical scars, well healing HENRY drain site at epigastrium w/ o erythema or underlying induration, normoactive bowel sounds. No guarding, no rebound. EXTREMITIES : Normal inspection, Normal range of motion, no edema. No clubbing or cyanosis NEUROLOGICAL: Cranial nerves II through XII grossly intact. Normal speech, normal gait, no focal sensorimotor deficits SKIN: Warm, Dry, normal turgor, no rashes or lesions noted 05/30/18 00:14 ED Treatment Course - LABORATORY CBC & Chemistry Diagram: 05/30/18 00:25 05/30/18 02:30 Medical Decision Making - Medical Decision Making The patient is a 47M w/ a history of aborted bariatric surgery 2/2 multiple adhesions, HIV, T2DM, and recent RUQ intra-abdominal fluid collection s/p drain and removal approximately 1 wk ago. Ddx: appendicitis, re-accumulation of intra-abdominal fluid collection, new intra-abdominal fluid collection, partial SBO; not likely but considered nephrolithiasis, diverticulitis ED Course CMP, CBC, Lipase UA CXR CT A&P w/ IV contrast Morphine 4mg IV once 05/30/18 00:55 Morphine 2mg IV once Ofirmev [address]g [address] w/o evidence of appendicitis, abscess, thickened bowel or acute geni UA w/o evidence of UTI Lytes wnl No leukocytosis 05/30/18 05:09 Before discharge abdominal re-exam shows a soft abdomen, improved tenderness w/ o rebound, nondistended. Patient feels much better and can tolerate POs. Morphine 2mg IV once for pain. Pain improved relative to presentation prior to last Morphine dose. Rx for Oxy 5mg PO QID PRN, x15 Lactate 1.0 Plan for D/C Home w/ PCP and pain f/u Discharge instructions and return precautions given The patient is aware of and understands precautions, as well as need to follow up. Dispo: Home 05/30/18 06:35 *DC/Admit/Observation/Transfer Diagnosis at time of Disposition: Abdominal pain Qualifiers: Abdominal location: right lower quadrant Qualified Code(s): R10.31 - Right lower quadrant pain - Discharge Dispostion Disposition: HOME Condition at time of disposition: Improved Decision to Admit order: No - Prescriptions Prescriptions: Oxycodone HCl 5 mg PO Q6H PRN #12 tablet MDD 4 tablets PRN Reason: Pain - Referrals Referrals: Jennifer Dove MD [Primary Care Provider] - Johnny Nunez MD [Staff Physician] - - Patient Instructions Printed Discharge Instructions: DI for Abdominal Pain-Adult Additional Instructions: You were seen today in the Emergency Room for evaluation of abdominal pain. You were evaluated and found not to have appendicitis, bowel obstruction, thickening of the bowel wall, or signs of vessel occlusion. Please review the handout provided at discharge. Please followup with your primary care physician within the next 1-3 days. A prescription was sent to the pharmacy that you specified. Return to the Emergency Room if you develop fevers, worsening/intractable pain, blood in your stool or urine, vomiting, or any new/concerning symptoms. - Post Discharge Activity
[2018-05-30 00:46] LABS: HEMATOCRIT 39.3 % (35.4-49); HEMOGLOBIN 12.5 GM/dL (11.7-16.9); MCH 26.7 pg (25.7-33.7); MCHC 31.8 g/dl (32.0-35.9); PLATELET COUNT 388 K/MM3 (134-434); RBC 4.67 M/mm3 (4.00-5.60); RDW 17.4 % (11.9-15.9); WHITE BLOOD COUNT 8.5 K/mm3 (4.0-10.0)
[2018-05-30 00:57] LABS: INR 1.09 (0.83-1.09); PROTHROMBIN TIME (PATIENT) 12.9 SEC (9.7-13.0)
[2018-05-30] MEDS ORDERED: ONDANSETRON 4 MG/2 ML VIAL IVPUSH ONE (01:48)
[2018-05-30] MEDS ORDERED: morphine CARPU-JECT 4 MG/1 ML DISP.SYRIN IVPUSH ONE ×2 (01:48→06:07)
[2018-05-30] MEDS ORDERED: morphine SULFATE 4 MG/ML VIAL ONE (01:51)
[2018-05-30] MEDS ORDERED: ONDANSETRON 4 MG/2 ML VIAL ONE (01:51)
[2018-05-30 03:07] LABS: ALBUMIN 3.6 g/dl (3.4-5.0); ALK PHOS 95 U/L (45-117); ANION GAP 9 MMOL/L (8-16); BILIRUBIN,TOTAL 0.2 mg/dL (0.2-1); BLOOD UREA NITROGEN 16 mg/dL (7-18); CALCIUM 8.5 mg/dL (8.5-10.1); CHLORIDE 107 mmol/L (98-107); CO2 24 mmol/L (21-32); GLUCOSE,RANDOM 141 mg/dL (74-106); POTASSIUM 4.1 mmol/L (3.5-5.1); SGOT/AST 14 U/L (15-37); SGPT/ALT 23 U/L (13-61); SODIUM 140 mmol/L (136-145); TOT PROT 7.5 g/dl (6.4-8.2)
[2018-05-30 03:10] LABS: URINE APPEARANCE CLEAR; URINE BILIRUBIN NEGATIVE (<2.0 mg/dL); URINE COLOR YELLOW; URINE GLUCOSE (UA) NEGATIVE (NEGATIVE); URINE KETONE NEGATIVE (NEGATIVE); URINE LEUK ESTERASE NEGATIVE (NEGATIVE); URINE NITRITE NEGATIVE (NEGATIVE); URINE PROTEIN NEGATIVE (NEGATIVE)
[2018-05-30] MEDS ORDERED: morphine CARPU-JECT 2 MG/1 ML DISP.SYRIN IVPUSH ONE (03:38)
[2018-05-30] MEDS ORDERED: ACETAMINOPHEN 1000 MG/100 ML VIAL (NON FORMULARY) IVPB ONE (03:38)
[2018-05-30] MEDS ORDERED: MORPHINE SULFATE 2 MG/ML VIAL ONE (06:09)
== END 2018-05-30 06:27 | disposition home or self-care (01) ==
LOC: JER 23:02
PROC: 3E033NZ Introduction of Analgesics, Hypnotics, Sedatives into Peripheral Vein, Percutaneous Approach (ICD-10-PCS; principal; 2018-05-29)
PROC: 3E033GC Introduction of Other Therapeutic Substance into Peripheral Vein, Percutaneous Approach (ICD-10-PCS; 2018-05-29)
PROC: 3E033NZ Introduction of Analgesics, Hypnotics, Sedatives into Peripheral Vein, Percutaneous Approach (ICD-10-PCS; 2018-05-29)
DX: R10.31 Right lower quadrant pain (principal); E11.9 Type 2 diabetes mellitus without complications; Z79.84 Long term (current) use of oral hypoglycemic drugs; Z21 Asymptomatic human immunodeficiency virus [HIV] infection status; K95.89 Other complications of other bariatric procedure; Z98.84 Bariatric surgery status
CPT/HCPCS: 36415; 71045-TC-FY; 74177-TC; 80053; 81003; 83605; 83690; 85027; 85610; 85730; 99282-25; J0131

== ENCOUNTER 2020-12-13 12:30 | Inpatient (IN) | payer OTHER ==
[2020-12-13 13:43] VITALS: BMI 41.0
[2020-12-13] MEDS ORDERED: ONDANSETRON *ODT* 4 MG TABLET SL PRN (14:00)
[2020-12-13] MEDS ORDERED: MAGNESIUM CITRATE 300 ML BOTTLE PO PRN (14:00)
[2020-12-13] MEDS ORDERED: MAGNESIUM HYDROX 2400MG/30ML ORAL SUSPENSION 30 ML CUP PO PRN (14:00)
[2020-12-13] MEDS ORDERED: IBUPROFEN 400 MG TABLET (FP) PO PRN (14:00)
[2020-12-13] MEDS ORDERED: MAG HYDROX/AL HYDROX/SIMETH 30 ML UNIT-DOSE CUP PO PRN (14:00)
[2020-12-13] MEDS ORDERED: ACETAMINOPHEN 325 MG TABLET (FP) PO PRN ×2 (14:00)
[2020-12-13] MEDS ORDERED: BISMUTH SUBSALICYLATE 262 MG/15 ML BTL PO PRN (14:00)
[2020-12-13] MEDS ORDERED: METHADONE HCL 10 MG TABLET (FOR DETOX USE ONLY) PO ONE (14:00)
[2020-12-13] MEDS ORDERED: NICOTINE POLACRILEX 2 MG GUM BUC PRN (14:00)
[2020-12-13] MEDS ORDERED: cloNIDine HCL 0.1 MG TABLET PO PRN (14:00)
[2020-12-13] MEDS ORDERED: MENTHOL/PHENOL 1 EACH UD MM PRN (14:00)
[2020-12-13] MEDS: PRENATAL VITAMINS W/ FOLIC ACID TABLET (FP) PO SCH (15:47)
[2020-12-13] MEDS: hydrOXYzine PAMOATE 25 MG CAPSULE (FP) PO SCH ×3 (15:51→23:29)
[2020-12-13] MEDS: NICOTINE 21 MG/24 HOURS TOPICAL PATCH TD SCH (15:51)
[2020-12-13 17:12] LABS: CALCIUM 9.3 mg/dL (8.5-10.1)
[2020-12-13 17:13] LABS: BLOOD UREA NITROGEN 10.9 mg/dL (7-18)
[2020-12-13 17:16] LABS: CREATININE 0.9 mg/dL (0.55-1.3)
[2020-12-13 17:17] LABS: BILIRUBIN,TOTAL 0.6 mg/dL (0.2-1); HEMATOCRIT 42.5 % (35.4-49); MEAN CELL VOLUME 81.7 fl (80-96); PLATELET COUNT 271 K/MM3 (134-434); RDW 15.4 % (11.9-15.9); TOT PROT 8.3 g/dl (6.4-8.2); WHITE BLOOD COUNT 8.5 K/mm3 (4.0-10.0)
[2020-12-13] MEDS: METHOCARBAMOL 500 MG TABLET PO PRN (20:38)
[2020-12-13] MEDS ORDERED: THIAMINE HCL 100 MG TABLET (FP) PO SCH (22:00)
[2020-12-13] MEDS ORDERED: MELATONIN 5 MG TABLETS PO SCH (22:00)
[2020-12-13] MEDS ORDERED: traZODone HCL 50 MG TABLET (FP) PO SCH (22:00)
[2020-12-14] MEDS: METHOCARBAMOL 500 MG TABLET PO PRN (03:31)
[2020-12-14] MEDS: hydrOXYzine PAMOATE 25 MG CAPSULE (FP) PO SCH ×3 (06:33→14:05)
[2020-12-14] MEDS ORDERED: guaiFENesin/D-METHORPHAN HB 10 ML UNIT-DOSE CUPS PO PRN (06:45)
[2020-12-14] MEDS ORDERED: ALBUTEROL SO4 HFA INHALER IH PRN (06:58)
[2020-12-14] MEDS ORDERED: ALBUTEROL SO4 HFA INHALER IH ONE (07:01)
[2020-12-14 09:09] VITALS: BP 123/70; PULSE 77; TEMP 97.1
[2020-12-14] MEDS ORDERED: METHADONE HCL 10 MG TABLET (FOR DETOX USE ONLY) ONE (09:23)
[2020-12-14] MEDS ORDERED: METHADONE HCL 5 MG TABLET (FOR DETOX USE ONLY) ONE (09:23)
[2020-12-14] MEDS: PRENATAL VITAMINS W/ FOLIC ACID TABLET (FP) PO SCH (09:31)
[2020-12-14] MEDS: NICOTINE 21 MG/24 HOURS TOPICAL PATCH TD SCH (09:32)
[2020-12-14] MEDS ORDERED: FLUoxetine HCL 20 MG CAPSULE PO SCH (10:00)
[2020-12-14] MEDS ORDERED: METHADONE (DETOX) 20 MG, METHADONE (DETOX) 5 MG PO ONE (10:00)
[2020-12-14] MEDS ORDERED: glipiZIDE 5 MG TABLET (FP) PO SCH (16:30)
[2020-12-14] MEDS ORDERED: ATORVASTATIN CA 20 MG TABLET (FP) PO SCH (22:00)
[2020-12-14] MEDS ORDERED: ENOXAPARIN NA (PORCINE) 100 MG/1 ML DISP.SYRIN SQ SCH (22:00)
[2020-12-15] MEDS ORDERED: LIRAGLUTIDE 0.6 MG/0.1 ML PEN.INJCTR SQ SCH (07:00)
[2020-12-15] MEDS ORDERED: PANTOPRAZOLE 40 MG TABLET PO SCH (10:00)
[2020-12-15] MEDS ORDERED: METHADONE HCL 10 MG TABLET (FOR DETOX USE ONLY) PO ONE (10:00)
[2020-12-16] MEDS ORDERED: METHADONE (DETOX) 10 MG, METHADONE (DETOX) 5 MG PO ONE (10:00)
[2020-12-17] MEDS ORDERED: METHADONE HCL 10 MG TABLET (FOR DETOX USE ONLY) PO ONE (10:00)
[2020-12-18] MEDS ORDERED: METHADONE HCL 5 MG TABLET (FOR DETOX USE ONLY) PO ONE (06:00)
[2020-12-21] MEDS ORDERED: ERGOCALCIFEROL (VIT D2) 50,000 UNIT (1.25 MG) CAPSULE PO SCH (10:00)
== END 2020-12-14 16:30 | disposition short-term general hospital (02) | DRG 773 ==
LOC: YASAS 12:30 → Y3N 14:37
PROVIDERS: ADMIT Allergy & Immunology; ATTEND Allergy & Immunology
PROC: HZ2ZZZZ Detoxification Services for Substance Abuse Treatment (ICD-10-PCS; principal; 2020-12-13)
DX: F11.23 Opioid dependence with withdrawal (principal); F17.210 Nicotine dependence, cigarettes, uncomplicated; F25.9 Schizoaffective disorder, unspecified; F31.9 Bipolar disorder, unspecified; F19.24 Other psychoactive substance dependence with psychoactive substance-induced mood disorder; F41.8 Other specified anxiety disorders; U07.1 COVID-19; Z21 Asymptomatic human immunodeficiency virus [HIV] infection status; I10 Essential (primary) hypertension; E11.9 Type 2 diabetes mellitus without complications; Z79.4 Long term (current) use of insulin; G40.909 Epilepsy, unspecified, not intractable, without status epilepticus; K21.9 Gastro-esophageal reflux disease without esophagitis; D68.59 Other primary thrombophilia; I82.509 Chronic embolism and thrombosis of unspecified deep veins of unspecified lower extremity; Z79.01 Long term (current) use of anticoagulants; Z88.0 Allergy status to penicillin; Z88.8 Allergy status to other drugs, medicaments and biological substances; Z88.7 Allergy status to serum and vaccine; Z85.72 Personal history of non-Hodgkin lymphomas; Z86.711 Personal history of pulmonary embolism; Z95.828 Presence of other vascular implants and grafts; Q27.8 Other specified congenital malformations of peripheral vascular system
CPT/HCPCS: 36415; 80053; 85027; 86780; 87070; 87205; C9803; U0003; U0005

== ENCOUNTER 2020-12-14 10:14 | Inpatient (IN) | payer OTHER ==
[2020-12-14] MEDS ORDERED: DEXAMETHASONE SOD PHOSPHATE 4 MG/1 ML VIAL IVPUSH ONE (10:46)
[2020-12-14] MEDS ORDERED: ALBUTEROL SO4 2.5/IPRATROPIUM 0.5 INH SOL 3 ML VIAL.NEB. NEB ONE ×2 (10:52→10:55)
[2020-12-14] MEDS ORDERED: ACETAMINOPHEN 1000 MG/100 ML VIAL (NON FORMULARY) IVPB ONE ×2 (10:53→16:54)
[2020-12-14] MEDS ORDERED: DEXAMETHASONE SOD PHOSPHATE 10 MG/1 ML VIAL ONE (10:55)
[2020-12-14] MEDS ORDERED: ACETAMINOPHEN INJECTION 100 ML IVPB ONE (10:56)
[2020-12-14 11:25] LABS: EOS % 11.3 % (0-4.5); HEMATOCRIT 38.9 % (35.4-49); HEMOGLOBIN 12.9 GM/dL (11.7-16.9); LYMPH % 32.4 % (8-40); MCH 27.2 pg (25.7-33.7); MCHC 33.2 g/dl (32.0-35.9); MEAN CELL VOLUME 82.1 fl (80-96); MEAN PLT VOLUME 8.6 fl (7.5-11.1); MONO % 10.7 % (3.8-10.2); NEUT % 44.6 % (42.8-82.8); PLATELET COUNT 242 K/MM3 (134-434); RBC 4.74 M/mm3 (4.00-5.60); RDW 15.2 % (11.9-15.9); WHITE BLOOD COUNT 7.1 K/mm3 (4.0-10.0)
[2020-12-14 11:33] LABS: INR 0.98 (0.83-1.09); PROTHROMBIN TIME (PATIENT) 12.1 SEC (9.7-13.0)
[2020-12-14 11:35] LABS: ACTIVATED PTT 29.5 SECONDS (25.2-36.5)
[2020-12-14 11:56] LABS: CHLORIDE 104 mmol/L (98-107); SODIUM 139 mmol/L (136-145)
[2020-12-14 11:58] LABS: ALBUMIN 3.4 g/dl (3.4-5.0); ANION GAP 7 MMOL/L (8-16); BLOOD UREA NITROGEN 16.4 mg/dL (7-18); CALCIUM 8.3 mg/dL (8.5-10.1); CO2 27 mmol/L (21-32)
[2020-12-14 11:59] LABS: GLUCOSE,RANDOM 308 mg/dL (74-106)
[2020-12-14 12:01] LABS: BILIRUBIN,DIRECT 0.1 mg/dL (0.0-0.2); CREATININE 0.8 mg/dL (0.55-1.3); SGPT/ALT 25 U/L (13-61)
[2020-12-14 12:02] LABS: SGOT/AST 15 U/L (15-37)
[2020-12-14 12:03] LABS: BILIRUBIN,TOTAL 0.1 mg/dL (0.2-1); LDH 154 U/L (87-246)
[2020-12-14 12:04] LABS: ALK PHOS 126 U/L (45-117)
[2020-12-14] MEDS ORDERED: guaiFENesin/D-M SUGAR-FREE/ACLHOL-FREE 118 ML BOTTLE PO ONE (16:15)
[2020-12-14] MEDS ORDERED: ALBUTEROL SO4 HFA INHALER IH PRN (16:19)
[2020-12-14] MEDS ORDERED: cloNIDine HCL 0.1 MG TABLET PO PRN (16:21)
[2020-12-14] MEDS ORDERED: clonazePAM 2 MG TABLET PO ONE (16:52)
[2020-12-14] MEDS: INSULIN SLIDING SCALE (NOVOLOG) 1 VIAL SQ SCH ×2 (17:11→22:08)
[2020-12-14] MEDS ORDERED: clonazePAM 2 MG TABLET PO PRN (17:16)
[2020-12-14] MEDS ORDERED: clonazePAM 0.5 MG TABLET PO PRN (17:20)
[2020-12-14 18:59] VITALS: BMI 41.0
[2020-12-14] MEDS ORDERED: guaiFENesin/D-M SUGAR-FREE/ACLHOL-FREE 5 ML UNIT DOSE PO PRN (20:00)
[2020-12-14] MEDS ORDERED: ACETAMINOPHEN 1000 MG/100 ML VIAL (NON FORMULARY) IVPB PRN (21:00)
[2020-12-14] MEDS: ENOXAPARIN NA (PORCINE) 100 MG/1 ML DISP.SYRIN SQ SCH (22:07)
[2020-12-14] MEDS: ATORVASTATIN CA 20 MG TABLET (FP) PO SCH (22:07)
[2020-12-15] MEDS: INSULIN SLIDING SCALE (NOVOLOG) 1 VIAL SQ SCH ×4 (06:34→21:35)
[2020-12-15 08:30] LABS: PH,URINE 7.5 (5.0-8.0); URINE APPEARANCE CLEAR; URINE BILIRUBIN NEGATIVE (NEGATIVE); URINE COLOR YELLOW; URINE GLUCOSE (UA) 1+ (NEGATIVE); URINE KETONE NEGATIVE (NEGATIVE); URINE LEUK ESTERASE NEGATIVE (NEGATIVE); URINE NITRITE NEGATIVE (NEGATIVE); URINE PROTEIN NEGATIVE (NEGATIVE)
[2020-12-15 08:35] LABS: BASO % 0.1 % (0-2.0); HEMATOCRIT 39.1 % (35.4-49); HEMOGLOBIN 12.8 GM/dL (11.7-16.9); LYMPH % 14.1 % (8-40); MCH 26.9 pg (25.7-33.7); MCHC 32.8 g/dl (32.0-35.9); MEAN CELL VOLUME 82.1 fl (80-96); MEAN PLT VOLUME 9.2 fl (7.5-11.1); MONO % 7.3 % (3.8-10.2); NEUT % 78.5 % (42.8-82.8); PLATELET COUNT 249 K/MM3 (134-434); RBC 4.77 M/mm3 (4.00-5.60); RDW 14.9 % (11.9-15.9); WHITE BLOOD COUNT 10.5 K/mm3 (4.0-10.0)
[2020-12-15 08:43] LABS: EPI CELLS 3 /uL (0-25.1); HYALINE CASTS 0 /uL (0-3.1); URINE BACTERIA 7 /uL (0-1359); URINE RBC 1 /uL (0-23.9); URINE WBC 0 /uL (0-25.8)
[2020-12-15 08:52] LABS: CHLORIDE 104 mmol/L (98-107); SODIUM 137 mmol/L (136-145)
[2020-12-15 08:57] LABS: CALCIUM 8.9 mg/dL (8.5-10.1)
[2020-12-15 08:58] LABS: ALBUMIN 3.6 g/dl (3.4-5.0); ANION GAP 9 MMOL/L (8-16); BLOOD UREA NITROGEN 12.7 mg/dL (7-18); CO2 24 mmol/L (21-32); GLUCOSE,RANDOM 214 mg/dL (74-106)
[2020-12-15 09:00] LABS: CREATININE 0.8 mg/dL (0.55-1.3)
[2020-12-15 09:01] LABS: PHOSPHOROUS 2.8 mg/dL (2.5-4.9); SGOT/AST 15 U/L (15-37); SGPT/ALT 25 U/L (13-61)
[2020-12-15 09:02] LABS: BILIRUBIN,TOTAL 0.3 mg/dL (0.2-1); LDH 155 U/L (87-246); TOT PROT 7.5 g/dl (6.4-8.2)
[2020-12-15 09:03] LABS: ALK PHOS 126 U/L (45-117)
[2020-12-15] MEDS ORDERED: METHADONE HCL 10 MG TABLET PO ONE (10:00)
[2020-12-15] MEDS ORDERED: FAMOTIDINE 20 MG TABLET PO SCH (10:00)
[2020-12-15] MEDS ORDERED: PT OWN MED DRAWER 7, Y5N ONE (10:14)
[2020-12-15] MEDS: FLUoxetine HCL 20 MG CAPSULE PO SCH (10:32)
[2020-12-15] MEDS: PANTOPRAZOLE 40 MG TABLET PO SCH (10:32)
[2020-12-15] MEDS: ENOXAPARIN NA (PORCINE) 100 MG/1 ML DISP.SYRIN SQ SCH ×2 (10:32→21:30)
[2020-12-15] MEDS: DEXAMETHASONE 4 MG TABLET (FP) PO SCH (11:24)
[2020-12-15] MEDS: traZODone HCL 100 MG TABLET (FP) PO SCH (21:29)
[2020-12-15] MEDS: ATORVASTATIN CA 20 MG TABLET (FP) PO SCH (21:29)
[2020-12-16] MEDS: INSULIN SLIDING SCALE (NOVOLOG) 1 VIAL SQ SCH ×4 (06:13→22:46)
[2020-12-16 08:27] LABS: HEMATOCRIT 39.7 % (35.4-49); HEMOGLOBIN 13.1 GM/dL (11.7-16.9); MCH 26.9 pg (25.7-33.7); MCHC 33.1 g/dl (32.0-35.9); MEAN CELL VOLUME 81.3 fl (80-96); MEAN PLT VOLUME 8.8 fl (7.5-11.1); PLATELET COUNT 250 K/MM3 (134-434); RBC 4.88 M/mm3 (4.00-5.60); RDW 15.4 % (11.9-15.9); WHITE BLOOD COUNT 10.9 K/mm3 (4.0-10.0)
[2020-12-16 09:07] LABS: BILIRUBIN,TOTAL 0.2 mg/dL (0.2-1); TOT PROT 7.1 g/dl (6.4-8.2)
[2020-12-16 09:09] LABS: ALBUMIN 3.4 g/dl (3.4-5.0); BLOOD UREA NITROGEN 16.9 mg/dL (7-18)
[2020-12-16 09:11] LABS: CALCIUM 8.7 mg/dL (8.5-10.1)
[2020-12-16 09:12] LABS: CREATININE 0.8 mg/dL (0.55-1.3); MAGNESIUM 2.3 mg/dL (1.8-2.4); PHOSPHOROUS 3.4 mg/dL (2.5-4.9)
[2020-12-16] MEDS ORDERED: PT OWN MED DRAWER 7, Y5N ONE (09:16)
[2020-12-16] MEDS: SENNOSIDES 8.6MG TABLET (FP) PO SCH ×2 (09:57→21:59)
[2020-12-16] MEDS: FLUoxetine HCL 20 MG CAPSULE PO SCH (09:58)
[2020-12-16] MEDS: LISINOPRIL 5 MG TABLET PO SCH (09:59)
[2020-12-16] MEDS: PANTOPRAZOLE 40 MG TABLET PO SCH (09:59)
[2020-12-16] MEDS: DEXAMETHASONE 4 MG TABLET (FP) PO SCH (10:00)
[2020-12-16] MEDS: ENOXAPARIN NA (PORCINE) 100 MG/1 ML DISP.SYRIN SQ SCH ×2 (10:00→21:53)
[2020-12-16] MEDS ORDERED: METHADONE 10 MG, METHADONE 5 MG PO ONE (10:00)
[2020-12-16] MEDS: PERPHENAZINE 8 MG TABLET PO SCH (10:01)
[2020-12-16] MEDS: QUEtiapine FUMARATE 200 MG TABLET PO SCH (10:01)
[2020-12-16] MEDS: POLYETHYLENE GLYCOL 3350 119 GM BTL PO SCH (10:02)
[2020-12-16] MEDS ORDERED: METHADONE HCL 5 MG TABLET ONE (10:04)
[2020-12-16] MEDS ORDERED: METHADONE HCL 10 MG TABLET ONE (10:04)
[2020-12-16] MEDS: traZODone HCL 100 MG TABLET (FP) PO SCH (21:53)
[2020-12-16] MEDS: ATORVASTATIN CA 20 MG TABLET (FP) PO SCH (21:54)
[2020-12-16] MEDS: BUDESONIDE/FORMETEROL FUMARATE 160/4.5 mcg INHALER IH SCH (22:47)
[2020-12-17] MEDS: INSULIN SLIDING SCALE (NOVOLOG) 1 VIAL SQ SCH ×4 (06:45→21:39)
[2020-12-17] MEDS ORDERED: PT OWN MED DRAWER 7, Y5N ONE ×2 (09:33→09:56)
[2020-12-17] MEDS: LISINOPRIL 5 MG TABLET PO SCH (09:58)
[2020-12-17] MEDS: QUEtiapine FUMARATE 200 MG TABLET PO SCH (09:58)
[2020-12-17] MEDS: PANTOPRAZOLE 40 MG TABLET PO SCH (09:58)
[2020-12-17] MEDS: BUDESONIDE/FORMETEROL FUMARATE 160/4.5 mcg INHALER IH SCH ×2 (09:59→21:39)
[2020-12-17] MEDS: FLUoxetine HCL 20 MG CAPSULE PO SCH (09:59)
[2020-12-17] MEDS: SENNOSIDES 8.6MG TABLET (FP) PO SCH ×2 (09:59→21:38)
[2020-12-17] MEDS ORDERED: METHADONE HCL 10 MG TABLET PO ONE (10:00)
[2020-12-17] MEDS: PERPHENAZINE 8 MG TABLET PO SCH (10:00)
[2020-12-17] MEDS: ENOXAPARIN NA (PORCINE) 100 MG/1 ML DISP.SYRIN SQ SCH ×2 (10:01→21:38)
[2020-12-17] MEDS: DEXAMETHASONE 4 MG TABLET (FP) PO SCH (10:01)
[2020-12-17] MEDS: POLYETHYLENE GLYCOL 3350 119 GM BTL PO SCH (10:06)
[2020-12-17] MEDS ORDERED: INSULIN (NOVOLOG) ASPART 100 UNITS/ML 10ML VIAL ONE (12:07)
[2020-12-17] MEDS: traZODone HCL 100 MG TABLET (FP) PO SCH (21:38)
[2020-12-17] MEDS: ATORVASTATIN CA 20 MG TABLET (FP) PO SCH (21:38)
[2020-12-18] MEDS ORDERED: METHADONE HCL 5 MG TABLET PO ONE (06:00)
[2020-12-18] MEDS: INSULIN SLIDING SCALE (NOVOLOG) 1 VIAL SQ SCH ×2 (06:06→11:50)
[2020-12-18 06:50] VITALS: TEMP 98.2
[2020-12-18] MEDS ORDERED: PT OWN MED DRAWER 7, Y5N ONE (10:08)
[2020-12-18] MEDS: DEXAMETHASONE 4 MG TABLET (FP) PO SCH (10:11)
[2020-12-18] MEDS: POLYETHYLENE GLYCOL 3350 119 GM BTL PO SCH (10:12)
[2020-12-18] MEDS: ENOXAPARIN NA (PORCINE) 100 MG/1 ML DISP.SYRIN SQ SCH (10:12)
[2020-12-18] MEDS: SENNOSIDES 8.6MG TABLET (FP) PO SCH (10:13)
[2020-12-18] MEDS: LISINOPRIL 5 MG TABLET PO SCH (10:13)
[2020-12-18] MEDS: PANTOPRAZOLE 40 MG TABLET PO SCH (10:13)
[2020-12-18] MEDS: BUDESONIDE/FORMETEROL FUMARATE 160/4.5 mcg INHALER IH SCH (10:13)
[2020-12-18] MEDS: FLUoxetine HCL 20 MG CAPSULE PO SCH (10:13)
[2020-12-18] MEDS: QUEtiapine FUMARATE 200 MG TABLET PO SCH (10:13)
[2020-12-18] MEDS: PERPHENAZINE 8 MG TABLET PO SCH (10:14)
[2020-12-18 10:19] VITALS: BP 125/72; PULSE 65
== END 2020-12-18 13:45 | disposition home or self-care (01) | DRG 137 ==
LOC: JER 10:14 → JERBED 10:45 → J6S 18:28
PROVIDERS: ADMIT Internal Medicine; ATTEND Student in an Organized Health Care Education/Training Program
PROC: HZ2ZZZZ Detoxification Services for Substance Abuse Treatment (ICD-10-PCS; principal; 2020-12-14)
PROC: XW13325 Transfusion of Convalescent Plasma (Nonautologous) into Peripheral Vein, Percutaneous Approach, New Technology Group 5 (ICD-10-PCS; 2020-12-17)
DX: U07.1 COVID-19 (principal); I10 Essential (primary) hypertension; E78.5 Hyperlipidemia, unspecified; F25.9 Schizoaffective disorder, unspecified; J96.01 Acute respiratory failure with hypoxia; C85.90 Non-Hodgkin lymphoma, unspecified, unspecified site; J45.21 Mild intermittent asthma with (acute) exacerbation; E54 Ascorbic acid deficiency; F19.94 Other psychoactive substance use, unspecified with psychoactive substance-induced mood disorder; F17.210 Nicotine dependence, cigarettes, uncomplicated; F41.8 Other specified anxiety disorders; F11.23 Opioid dependence with withdrawal; E66.9 Obesity, unspecified; Z68.41 Body mass index [BMI] 40.0-44.9, adult; E11.65 Type 2 diabetes mellitus with hyperglycemia; D68.59 Other primary thrombophilia; Z86.718 Personal history of other venous thrombosis and embolism; Z86.711 Personal history of pulmonary embolism; Z86.59 Personal history of other mental and behavioral disorders
CPT/HCPCS: 36415; 36430; 71045-TC-FY; 80053; 81003; 82248; 82550; 82553; 82728; 82962; 83036; 83605; 83615; 83735; 84100; 84439; 84443; 84484; 85025; 85027; 85379; 85610; 85730; 86140; 86769; 86850; 86900; 86901; 87040; 87086; 87804; 93005; 93010; 94761; 99285-25; J0131; P9017

== ENCOUNTER 2021-03-10 22:55 | Emergency (ER) | payer OTHER ==
[2021-03-10 23:08] VITALS: BMI 41.3
[2021-03-11] MEDS ORDERED: DEXAMETHASONE SOD PHOSPHATE 10 MG/1 ML VIAL IVPUSH ONE (00:19)
[2021-03-11] MEDS ORDERED: DEXAMETHASONE SOD PHOSPHATE 10 MG/1 ML VIAL ONE (00:26)
[2021-03-11] MEDS ORDERED: ALBUTEROL SO4 2.5/IPRATROPIUM 0.5 INH SOL 3 ML VIAL.NEB. NEB ONE (00:26)
[2021-03-11 00:27] LABS: BASO % 1.1 % (0-2.0); EOS % 5.1 % (0-4.5); HEMATOCRIT 39.8 % (35.4-49); HEMOGLOBIN 13.2 GM/dL (11.7-16.9); LYMPH % 17.8 % (8-40); MCH 26.5 pg (25.7-33.7); MCHC 33.1 g/dl (32.0-35.9); MEAN PLT VOLUME 8.6 fl (7.5-11.1); PLATELET COUNT 230 10^3/uL (134-434); RBC 4.98 M/mm3 (4.00-5.60); WHITE BLOOD COUNT 10.5 K/mm3 (4.0-10.0)
[2021-03-11] MEDS: ALBUTEROL SO4 2.5/IPRATROPIUM 0.5 INH SOL 3 ML VIAL.NEB. NEB SCH ×3 (00:34→01:57)
[2021-03-11 00:47] LABS: CHLORIDE 103 mmol/L (98-107); SODIUM 137 mmol/L (136-145)
[2021-03-11 00:49] LABS: CALCIUM 8.8 mg/dL (8.5-10.1)
[2021-03-11 00:50] LABS: ALBUMIN 3.6 g/dl (3.4-5.0); ANION GAP 5 MMOL/L (8-16); BLOOD UREA NITROGEN 15.2 mg/dL (7-18); CO2 29 mmol/L (21-32); GLUCOSE,RANDOM 319 mg/dL (74-106); MAGNESIUM 1.8 mg/dL (1.8-2.4)
[2021-03-11 00:53] LABS: SGOT/AST 17 U/L (15-37); SGPT/ALT 36 U/L (13-61)
[2021-03-11 00:55] LABS: BILIRUBIN,TOTAL 0.3 mg/dL (0.2-1)
[2021-03-11 00:56] LABS: ALK PHOS 133 U/L (45-117)
[2021-03-11 00:58] LABS: N-TERMINAL BNP 11.1 pg/ml (5-125)
[2021-03-11] MEDS ORDERED: methaDONE HCL 10 MG TABLET ONE (01:32)
[2021-03-11 04:36] VITALS: BP 143/93; PULSE 87; TEMP 98.8
== END 2021-03-11 06:16 | disposition home or self-care (01) ==
LOC: JER 22:55
PROC: 3E0F7GC Introduction of Other Therapeutic Substance into Respiratory Tract, Via Natural or Artificial Opening (ICD-10-PCS; principal; 2021-03-10)
PROC: 3E033GC Introduction of Other Therapeutic Substance into Peripheral Vein, Percutaneous Approach (ICD-10-PCS; 2021-03-10)
DX: J45.21 Mild intermittent asthma with (acute) exacerbation (principal)
CPT/HCPCS: 36415; 71045-TC-FY; 80053; 82550; 82553; 83735; 83880; 84484; 85025; 93005; 93010; 99285-25; J1100

== ENCOUNTER 2021-03-15 10:07 | Inpatient (IN) | payer OTHER ==
[2021-03-15 11:15] VITALS: BMI 42.2
[2021-03-15] MEDS ORDERED: IBUPROFEN 400 MG TABLET (FP) PO PRN (11:23)
[2021-03-15] MEDS ORDERED: MAGNESIUM HYDROX 2400MG/30ML ORAL SUSPENSION 30 ML CUP PO PRN (11:23)
[2021-03-15] MEDS ORDERED: ACETAMINOPHEN 325 MG TABLET (FP) PO PRN ×2 (11:23)
[2021-03-15] MEDS ORDERED: clonazePAM 0.5 MG ODT TABLETS SL PRN (11:23)
[2021-03-15] MEDS ORDERED: MAGNESIUM CITRATE 300 ML BOTTLE PO PRN (11:23)
[2021-03-15] MEDS ORDERED: methaDONE HCL 10 MG TABLET (FOR DETOX USE ONLY) PO ONE (11:23)
[2021-03-15] MEDS ORDERED: cloNIDine HCL 0.1 MG TABLET PO PRN (11:23)
[2021-03-15] MEDS ORDERED: MAG HYDROX/AL HYDROX/SIMETH 30 ML UNIT-DOSE CUP PO PRN (11:23)
[2021-03-15] MEDS ORDERED: BISMUTH SUBSALICYLATE 524 MG/30 ML PO PRN (11:23)
[2021-03-15] MEDS ORDERED: ONDANSETRON *ODT* 4 MG TABLET SL PRN (11:23)
[2021-03-15] MEDS ORDERED: MENTHOL/PHENOL 1 EACH UD MM PRN (11:23)
[2021-03-15] MEDS ORDERED: INSULIN (NOVOLOG) ASPART 100 UNITS/ML 10ML VIAL SQ ONE (12:45)
[2021-03-15] MEDS: METHOCARBAMOL 500 MG TABLET PO PRN (13:07)
[2021-03-15] MEDS ORDERED: hydrOXYzine PAMOATE 25 MG CAPSULE (FP) PO PRN (13:08)
[2021-03-15] MEDS: PRENATAL VITAMINS W/ FOLIC ACID TABLET (FP) PO SCH (13:09)
[2021-03-15 13:22] LABS: CHLORIDE 98 mmol/L (98-107); HEMATOCRIT 41.5 % (35.4-49); HEMOGLOBIN 13.6 GM/dL (11.7-16.9); MCH 26.6 pg (25.7-33.7); MCHC 32.7 g/dl (32.0-35.9); MEAN CELL VOLUME 81.3 fl (80-96); MEAN PLT VOLUME 9.2 fl (7.5-11.1); PLATELET COUNT 235 10^3/uL (134-434); RDW 15.2 % (11.9-15.9); SODIUM 134 mmol/L (136-145); WHITE BLOOD COUNT 8.3 K/mm3 (4.0-10.0)
[2021-03-15] MEDS: ALBUTEROL SO4 HFA INHALER IH PRN ×2 (13:23→18:05)
[2021-03-15 13:25] LABS: ALBUMIN 3.8 g/dl (3.4-5.0); ANION GAP 11 MMOL/L (8-16); BLOOD UREA NITROGEN 9.5 mg/dL (7-18); CALCIUM 9.1 mg/dL (8.5-10.1); CO2 25 mmol/L (21-32)
[2021-03-15 13:28] LABS: SGOT/AST 19 U/L (15-37); SGPT/ALT 40 U/L (13-61)
[2021-03-15 13:30] LABS: BILIRUBIN,TOTAL 0.3 mg/dL (0.2-1); TOT PROT 7.8 g/dl (6.4-8.2)
[2021-03-15 13:31] LABS: ALK PHOS 138 U/L (45-117)
[2021-03-15 13:44] LABS: GLUCOSE,RANDOM 428 mg/dL (74-106)
[2021-03-15] MEDS ORDERED: hydrOXYzine PAMOATE 25 MG CAPSULE (FP) PO SCH (14:00)
[2021-03-15 14:20] LABS: HIV INTERPRETATION NEGATIVE (NEGATIVE)
[2021-03-15] MEDS: glipiZIDE 5 MG TABLET (FP) PO SCH (17:44)
[2021-03-15] MEDS: INSULIN SLIDING SCALE (NOVOLOG) 1 VIAL SQ SCH (17:45)
[2021-03-15] MEDS: MELATONIN 5 MG TABLETS PO SCH (22:19)
[2021-03-15] MEDS: ATORVASTATIN CA 20 MG TABLET (FP) PO SCH (22:19)
[2021-03-15] MEDS: traZODone HCL 50 MG TABLET (FP) PO SCH (22:19)
[2021-03-15] MEDS: THIAMINE HCL 100 MG TABLET (FP) PO SCH (22:19)
[2021-03-15] MEDS: ENOXAPARIN NA (PORCINE) 100 MG/1 ML DISP.SYRIN SQ SCH (23:05)
[2021-03-15] MEDS: BUDESONIDE/FORMETEROL FUMARATE 80/4.5 mcg INHALER IH SCH (23:05)
[2021-03-16] MEDS: LIRAGLUTIDE 0.6 MG/0.1 ML PEN.INJCTR SQ SCH (06:32)
[2021-03-16] MEDS: INSULIN SLIDING SCALE (NOVOLOG) 1 VIAL SQ SCH ×2 (06:37→17:24)
[2021-03-16] MEDS: glipiZIDE 5 MG TABLET (FP) PO SCH ×2 (07:14→17:24)
[2021-03-16] MEDS: METHOCARBAMOL 500 MG TABLET PO PRN ×2 (08:49→14:21)
[2021-03-16] MEDS ORDERED: methaDONE HCL 10 MG TABLET (FOR DETOX USE ONLY) ONE (09:47)
[2021-03-16] MEDS: LISINOPRIL 5 MG TABLET PO SCH (10:17)
[2021-03-16] MEDS: FLUoxetine HCL 20 MG CAPSULE PO SCH (10:17)
[2021-03-16] MEDS: PRENATAL VITAMINS W/ FOLIC ACID TABLET (FP) PO SCH (10:17)
[2021-03-16] MEDS: NICOTINE 14 MG/24 HOURS TOPICAL PATCH TD SCH (10:17)
[2021-03-16] MEDS: BUDESONIDE/FORMETEROL FUMARATE 80/4.5 mcg INHALER IH SCH ×2 (10:17→22:38)
[2021-03-16] MEDS: ENOXAPARIN NA (PORCINE) 100 MG/1 ML DISP.SYRIN SQ SCH ×2 (11:11→23:33)
[2021-03-16] MEDS ORDERED: PNEUMOC 13-VAL CONJ-DIP CRM/PF 0.5 ML DISP.SYRIN IM ONE (12:00)
[2021-03-16] MEDS ORDERED: LIDOCAINE 5% TOPICAL PATCH TP ONE (12:11)
[2021-03-16] MEDS: diazePAM 5 MG TABLET PO PRN (18:19)
[2021-03-16] MEDS: THIAMINE HCL 100 MG TABLET (FP) PO SCH (22:39)
[2021-03-16] MEDS: MELATONIN 5 MG TABLETS PO SCH (22:39)
[2021-03-16] MEDS: traZODone HCL 50 MG TABLET (FP) PO SCH (22:39)
[2021-03-16] MEDS: ATORVASTATIN CA 20 MG TABLET (FP) PO SCH (22:39)
[2021-03-16] MEDS: LIDOCAINE PATCH REMOVAL MC SCH (22:40)
[2021-03-17] MEDS ORDERED: INSULIN SLIDING SCALE (NOVOLOG) 1 VIAL SQ ONE ×2 (06:40→07:39)
[2021-03-17] MEDS: INSULIN SLIDING SCALE (NOVOLOG) 1 VIAL SQ SCH ×2 (06:45→17:19)
[2021-03-17] MEDS: LIRAGLUTIDE 0.6 MG/0.1 ML PEN.INJCTR SQ SCH (06:46)
[2021-03-17] MEDS: glipiZIDE 5 MG TABLET (FP) PO SCH ×2 (06:48→17:18)
[2021-03-17] MEDS: NICOTINE 10 MG CARTRIDGE (INHALER) IH PRN ×2 (07:50→15:39)
[2021-03-17] MEDS ORDERED: methaDONE HCL 10 MG TABLET (FOR DETOX USE ONLY) PO ONE (10:00)
[2021-03-17] MEDS: FLUoxetine HCL 20 MG CAPSULE PO SCH (10:23)
[2021-03-17] MEDS: NICOTINE 14 MG/24 HOURS TOPICAL PATCH TD SCH (10:23)
[2021-03-17] MEDS: LIDOCAINE 5% TOPICAL PATCH TP SCH (10:24)
[2021-03-17] MEDS: PRENATAL VITAMINS W/ FOLIC ACID TABLET (FP) PO SCH (10:24)
[2021-03-17] MEDS: BUDESONIDE/FORMETEROL FUMARATE 80/4.5 mcg INHALER IH SCH ×2 (10:24→21:54)
[2021-03-17] MEDS: LISINOPRIL 5 MG TABLET PO SCH (10:24)
[2021-03-17] MEDS: ENOXAPARIN NA (PORCINE) 100 MG/1 ML DISP.SYRIN SQ SCH ×2 (10:28→21:55)
[2021-03-17] MEDS: diazePAM 5 MG TABLET PO PRN (19:16)
[2021-03-17] MEDS: ATORVASTATIN CA 20 MG TABLET (FP) PO SCH (21:50)
[2021-03-17] MEDS: traZODone HCL 50 MG TABLET (FP) PO SCH (21:50)
[2021-03-17] MEDS: THIAMINE HCL 100 MG TABLET (FP) PO SCH (21:50)
[2021-03-17] MEDS: MELATONIN 5 MG TABLETS PO SCH (21:50)
[2021-03-17] MEDS: LIDOCAINE PATCH REMOVAL MC SCH (21:56)
[2021-03-18] MEDS ORDERED: INSULIN SLIDING SCALE (NOVOLOG) 1 VIAL SQ ONE (06:59)
[2021-03-18] MEDS: glipiZIDE 5 MG TABLET (FP) PO SCH ×2 (07:01→18:05)
[2021-03-18] MEDS: INSULIN SLIDING SCALE (NOVOLOG) 1 VIAL SQ SCH ×2 (07:02→18:07)
[2021-03-18] MEDS: LIRAGLUTIDE 0.6 MG/0.1 ML PEN.INJCTR SQ SCH (07:02)
[2021-03-18] MEDS ORDERED: methaDONE HCL 10 MG TABLET (FOR DETOX USE ONLY) ONE (09:14)
[2021-03-18] MEDS: PRENATAL VITAMINS W/ FOLIC ACID TABLET (FP) PO SCH (10:36)
[2021-03-18] MEDS: LISINOPRIL 5 MG TABLET PO SCH (10:37)
[2021-03-18] MEDS: FLUoxetine HCL 20 MG CAPSULE PO SCH (10:37)
[2021-03-18] MEDS: NICOTINE 14 MG/24 HOURS TOPICAL PATCH TD SCH (10:38)
[2021-03-18] MEDS: BUDESONIDE/FORMETEROL FUMARATE 80/4.5 mcg INHALER IH SCH ×2 (10:38→22:31)
[2021-03-18] MEDS: ENOXAPARIN NA (PORCINE) 100 MG/1 ML DISP.SYRIN SQ SCH ×2 (11:16→22:45)
[2021-03-18] MEDS: LIDOCAINE 5% TOPICAL PATCH TP SCH (11:16)
[2021-03-18] MEDS: ATORVASTATIN CA 20 MG TABLET (FP) PO SCH (22:31)
[2021-03-18] MEDS: LIDOCAINE PATCH REMOVAL MC SCH (22:32)
[2021-03-18] MEDS: traZODone HCL 50 MG TABLET (FP) PO SCH (22:32)
[2021-03-18] MEDS: MELATONIN 5 MG TABLETS PO SCH (22:32)
[2021-03-18] MEDS: THIAMINE HCL 100 MG TABLET (FP) PO SCH (22:32)
[2021-03-19] MEDS: glipiZIDE 5 MG TABLET (FP) PO SCH ×2 (06:41→16:53)
[2021-03-19] MEDS: LIRAGLUTIDE 0.6 MG/0.1 ML PEN.INJCTR SQ SCH (06:44)
[2021-03-19] MEDS ORDERED: INSULIN (NOVOLOG) ASPART 100 UNITS/ML 10ML VIAL ONE (07:22)
[2021-03-19] MEDS: INSULIN SLIDING SCALE (NOVOLOG) 1 VIAL SQ SCH ×2 (07:31→16:51)
[2021-03-19] MEDS: NICOTINE 10 MG CARTRIDGE (INHALER) IH PRN (08:41)
[2021-03-19] MEDS ORDERED: methaDONE HCL 10 MG TABLET (FOR DETOX USE ONLY) PO ONE (10:00)
[2021-03-19] MEDS: BUDESONIDE/FORMETEROL FUMARATE 80/4.5 mcg INHALER IH SCH ×2 (10:24→22:32)
[2021-03-19] MEDS: FLUoxetine HCL 20 MG CAPSULE PO SCH (10:24)
[2021-03-19] MEDS: NICOTINE 14 MG/24 HOURS TOPICAL PATCH TD SCH (10:24)
[2021-03-19] MEDS: LISINOPRIL 5 MG TABLET PO SCH (10:26)
[2021-03-19] MEDS: PRENATAL VITAMINS W/ FOLIC ACID TABLET (FP) PO SCH (10:26)
[2021-03-19] MEDS: LIDOCAINE 5% TOPICAL PATCH TP SCH (10:56)
[2021-03-19] MEDS: ENOXAPARIN NA (PORCINE) 100 MG/1 ML DISP.SYRIN SQ SCH ×2 (10:56→23:26)
[2021-03-19] MEDS: THIAMINE HCL 100 MG TABLET (FP) PO SCH (22:32)
[2021-03-19] MEDS: MELATONIN 5 MG TABLETS PO SCH (22:32)
[2021-03-19] MEDS: ATORVASTATIN CA 20 MG TABLET (FP) PO SCH (22:32)
[2021-03-19] MEDS: traZODone HCL 50 MG TABLET (FP) PO SCH (22:32)
[2021-03-19] MEDS: LIDOCAINE PATCH REMOVAL MC SCH (22:33)
[2021-03-20] MEDS: INSULIN SLIDING SCALE (NOVOLOG) 1 VIAL SQ SCH (07:22)
[2021-03-20] MEDS: glipiZIDE 5 MG TABLET (FP) PO SCH (07:22)
[2021-03-20] MEDS: LIRAGLUTIDE 0.6 MG/0.1 ML PEN.INJCTR SQ SCH (07:22)
[2021-03-20 09:10] VITALS: BP 107/61; PULSE 71; TEMP 96.4
[2021-03-20] MEDS: LIDOCAINE 5% TOPICAL PATCH TP SCH (10:06)
[2021-03-20] MEDS: NICOTINE 14 MG/24 HOURS TOPICAL PATCH TD SCH (10:06)
[2021-03-20] MEDS: ENOXAPARIN NA (PORCINE) 100 MG/1 ML DISP.SYRIN SQ SCH (10:06)
[2021-03-20] MEDS: PRENATAL VITAMINS W/ FOLIC ACID TABLET (FP) PO SCH (10:06)
[2021-03-20] MEDS: LISINOPRIL 5 MG TABLET PO SCH (10:06)
[2021-03-20] MEDS: BUDESONIDE/FORMETEROL FUMARATE 80/4.5 mcg INHALER IH SCH (10:06)
[2021-03-20] MEDS: FLUoxetine HCL 20 MG CAPSULE PO SCH (10:06)
== END 2021-03-20 09:18 | disposition home or self-care (01) | DRG 773 ==
LOC: YASAS 10:07 → Y3N 11:46
PROVIDERS: ADMIT Allergy & Immunology; ATTEND Allergy & Immunology
PROC: HZ2ZZZZ Detoxification Services for Substance Abuse Treatment (ICD-10-PCS; principal; 2021-03-15)
DX: F11.23 Opioid dependence with withdrawal (principal); F10.230 Alcohol dependence with withdrawal, uncomplicated; F14.20 Cocaine dependence, uncomplicated; F17.210 Nicotine dependence, cigarettes, uncomplicated; F33.9 Major depressive disorder, recurrent, unspecified; F25.9 Schizoaffective disorder, unspecified; F19.24 Other psychoactive substance dependence with psychoactive substance-induced mood disorder; F41.8 Other specified anxiety disorders; Z88.0 Allergy status to penicillin; Z88.8 Allergy status to other drugs, medicaments and biological substances; Z88.7 Allergy status to serum and vaccine
CPT/HCPCS: 36415; 80053; 82962; 85027; 86780; 87389; 90670; C9803; Q0162; U0003; U0005

== ENCOUNTER 2021-10-15 15:49 | Inpatient (IN) | payer OTHER ==
[2021-10-15 17:14] VITALS: BMI 38.8
[2021-10-15] MEDS ORDERED: ONDANSETRON *ODT* 4 MG TABLET SL PRN (19:10)
[2021-10-15] MEDS ORDERED: MAG HYDROX/AL HYDROX/SIMETH 30 ML UNIT-DOSE CUP PO PRN (19:10)
[2021-10-15] MEDS ORDERED: ACETAMINOPHEN 325 MG TABLET (FP) PO PRN ×2 (19:10)
[2021-10-15] MEDS ORDERED: MAGNESIUM CITRATE 300 ML BOTTLE PO PRN (19:10)
[2021-10-15] MEDS ORDERED: cloNIDine HCL 0.1 MG TABLET PO PRN (19:10)
[2021-10-15] MEDS ORDERED: NICOTINE POLACRILEX 2 MG GUM BUC PRN (19:10)
[2021-10-15] MEDS ORDERED: LOPERAMIDE HCL 2 MG CAPSULE PO PRN (19:10)
[2021-10-15] MEDS ORDERED: MAGNESIUM HYDROX 2400MG/30ML ORAL SUSPENSION 30 ML CUP PO PRN (19:10)
[2021-10-15] MEDS ORDERED: MENTHOL/PHENOL 1 EACH UD MM PRN (19:10)
[2021-10-15] MEDS ORDERED: BISMUTH SUBSALICYLATE 524 MG/30 ML PO PRN (19:10)
[2021-10-15] MEDS ORDERED: IBUPROFEN 400 MG TABLET (FP) PO PRN (19:10)
[2021-10-15] MEDS ORDERED: methaDONE HCL 10 MG TABLET (FOR DETOX USE ONLY) PO ONE (21:00)
[2021-10-15] MEDS: THIAMINE HCL 100 MG TABLET (FP) PO SCH (22:32)
[2021-10-15] MEDS: MELATONIN 5 MG TABLETS PO SCH (22:33)
[2021-10-15] MEDS ORDERED: ALBUTEROL SO4 HFA INHALER IH ONE (22:35)
[2021-10-16] MEDS: glipiZIDE 5 MG TABLET (FP) PO SCH ×2 (07:44→17:05)
[2021-10-16] MEDS ORDERED: methaDONE HCL 10 MG TABLET (FOR DETOX USE ONLY) ONE (09:01)
[2021-10-16 09:56] LABS: ALBUMIN 3.2 g/dl (3.4-5.0); BLOOD UREA NITROGEN 9.6 mg/dL (7-18)
[2021-10-16 09:59] LABS: CREATININE 0.8 mg/dL (0.55-1.3)
[2021-10-16 10:00] LABS: BILIRUBIN,TOTAL 0.3 mg/dL (0.2-1); TOT PROT 7.1 g/dl (6.4-8.2)
[2021-10-16 10:05] LABS: HEMATOCRIT 34.5 % (35.4-49); HEMOGLOBIN 11.1 GM/dL (11.7-16.9); MCHC 32.1 g/dl (32.0-35.9); MEAN PLT VOLUME 7.7 fl (7.5-11.1); PLATELET COUNT 260 10^3/uL (134-434); RBC 4.42 M/mm3 (4.00-5.60); RDW 16.9 % (11.9-15.9)
[2021-10-16] MEDS: METHOCARBAMOL 500 MG TABLET PO PRN (10:24)
[2021-10-16] MEDS: PRENATAL VITAMINS W/ FOLIC ACID TABLET (FP) PO SCH (10:24)
[2021-10-16] MEDS: LISINOPRIL 5 MG TABLET PO SCH (10:24)
[2021-10-16] MEDS: NICOTINE 14 MG/24 HOURS TOPICAL PATCH TD SCH (10:24)
[2021-10-16] MEDS: ENOXAPARIN NA (PORCINE) 100 MG/1 ML DISP.SYRIN SQ SCH ×2 (10:49→22:19)
[2021-10-16] MEDS: ALBUTEROL SO4 HFA INHALER IH PRN ×2 (12:23→16:50)
[2021-10-16] MEDS: INSULIN SLIDING SCALE (NOVOLOG) 1 VIAL SQ SCH (17:01)
[2021-10-16] MEDS ORDERED: INSULIN (NOVOLOG) ASPART 100 UNITS/ML 10ML VIAL ONE (17:04)
[2021-10-16] MEDS: THIAMINE HCL 100 MG TABLET (FP) PO SCH (22:14)
[2021-10-16] MEDS: ATORVASTATIN CA 20 MG TABLET (FP) PO SCH (22:15)
[2021-10-16] MEDS: MELATONIN 5 MG TABLETS PO SCH (22:15)
[2021-10-17] MEDS: ALBUTEROL SO4 HFA INHALER IH PRN ×2 (05:51→10:05)
[2021-10-17 06:06] LABS: SARS-CoV-2 NAA Not Detected (Not Detected)
[2021-10-17] MEDS: glipiZIDE 5 MG TABLET (FP) PO SCH ×2 (07:54→17:31)
[2021-10-17] MEDS: INSULIN SLIDING SCALE (NOVOLOG) 1 VIAL SQ SCH ×2 (07:54→17:33)
[2021-10-17] MEDS ORDERED: ALBUTEROL SO4 2.5/IPRATROPIUM 0.5 INH SOL 3 ML VIAL.NEB. NEB PRN ×2 (09:26→14:34)
[2021-10-17] MEDS ORDERED: methaDONE HCL 10 MG TABLET (FOR DETOX USE ONLY) PO ONE (10:00)
[2021-10-17] MEDS: METHOCARBAMOL 500 MG TABLET PO PRN (10:05)
[2021-10-17] MEDS: PRENATAL VITAMINS W/ FOLIC ACID TABLET (FP) PO SCH (10:05)
[2021-10-17] MEDS: LISINOPRIL 5 MG TABLET PO SCH (10:05)
[2021-10-17] MEDS: NICOTINE 14 MG/24 HOURS TOPICAL PATCH TD SCH (10:06)
[2021-10-17] MEDS: ENOXAPARIN NA (PORCINE) 100 MG/1 ML DISP.SYRIN SQ SCH ×2 (10:06→22:30)
[2021-10-17] MEDS ORDERED: INSULIN (NOVOLOG) ASPART 100 UNITS/ML 10ML VIAL ONE (16:56)
[2021-10-17] MEDS: ATORVASTATIN CA 20 MG TABLET (FP) PO SCH (22:28)
[2021-10-17] MEDS: THIAMINE HCL 100 MG TABLET (FP) PO SCH (22:28)
[2021-10-17] MEDS: MELATONIN 5 MG TABLETS PO SCH (22:29)
[2021-10-18] MEDS: glipiZIDE 5 MG TABLET (FP) PO SCH ×2 (06:25→17:24)
[2021-10-18] MEDS: INSULIN SLIDING SCALE (NOVOLOG) 1 VIAL SQ SCH ×2 (07:06→17:24)
[2021-10-18] MEDS: ALBUTEROL SO4 HFA INHALER IH PRN ×2 (08:19→15:05)
[2021-10-18] MEDS ORDERED: methaDONE HCL 10 MG TABLET (FOR DETOX USE ONLY) ONE (09:05)
[2021-10-18] MEDS: LISINOPRIL 5 MG TABLET PO SCH (10:16)
[2021-10-18] MEDS: PRENATAL VITAMINS W/ FOLIC ACID TABLET (FP) PO SCH (10:16)
[2021-10-18] MEDS: METHOCARBAMOL 500 MG TABLET PO PRN (10:16)
[2021-10-18] MEDS: NICOTINE 14 MG/24 HOURS TOPICAL PATCH TD SCH (10:20)
[2021-10-18] MEDS: ENOXAPARIN NA (PORCINE) 100 MG/1 ML DISP.SYRIN SQ SCH ×2 (10:20→22:30)
[2021-10-18] MEDS ORDERED: INSULIN (NOVOLOG) ASPART 100 UNITS/ML 10ML VIAL ONE (17:22)
[2021-10-18] MEDS: THIAMINE HCL 100 MG TABLET (FP) PO SCH (22:30)
[2021-10-18] MEDS: MELATONIN 5 MG TABLETS PO SCH (22:30)
[2021-10-18] MEDS: ATORVASTATIN CA 20 MG TABLET (FP) PO SCH (22:30)
[2021-10-19] MEDS: glipiZIDE 5 MG TABLET (FP) PO SCH ×2 (06:10→17:48)
[2021-10-19] MEDS: INSULIN SLIDING SCALE (NOVOLOG) 1 VIAL SQ SCH ×2 (06:11→17:48)
[2021-10-19] MEDS ORDERED: methaDONE HCL 10 MG TABLET (FOR DETOX USE ONLY) PO ONE (10:00)
[2021-10-19] MEDS: METHOCARBAMOL 500 MG TABLET PO PRN (10:19)
[2021-10-19] MEDS: PRENATAL VITAMINS W/ FOLIC ACID TABLET (FP) PO SCH (10:20)
[2021-10-19] MEDS: NICOTINE 14 MG/24 HOURS TOPICAL PATCH TD SCH (10:20)
[2021-10-19] MEDS: LISINOPRIL 5 MG TABLET PO SCH (10:20)
[2021-10-19] MEDS: ENOXAPARIN NA (PORCINE) 100 MG/1 ML DISP.SYRIN SQ SCH ×2 (10:21→22:45)
[2021-10-19 11:10] LABS: SARS-CoV-2 NAA Not Detected (Not Detected)
[2021-10-19] MEDS ORDERED: PERPHENAZINE 8 MG TABLET PO SCH (12:45)
[2021-10-19] MEDS: FLUoxetine HCL 20 MG CAPSULE PO SCH (12:50)
[2021-10-19] MEDS: PERPHENAZINE 4 MG TABLET PO SCH (14:36)
[2021-10-19] MEDS ORDERED: INSULIN (NOVOLOG) ASPART 100 UNITS/ML 10ML VIAL ONE (17:47)
[2021-10-19 19:35] LABS: HIV INTERPRETATION NEGATIVE (NEGATIVE)
[2021-10-19] MEDS ORDERED: QUEtiapine FUMARATE 100 MG TABLET (FP) PO SCH (22:00)
[2021-10-19] MEDS: THIAMINE HCL 100 MG TABLET (FP) PO SCH (22:42)
[2021-10-19] MEDS: ATORVASTATIN CA 20 MG TABLET (FP) PO SCH (22:42)
[2021-10-20] MEDS: glipiZIDE 5 MG TABLET (FP) PO SCH (07:19)
[2021-10-20] MEDS: INSULIN SLIDING SCALE (NOVOLOG) 1 VIAL SQ SCH (07:20)
[2021-10-20] MEDS: PRENATAL VITAMINS W/ FOLIC ACID TABLET (FP) PO SCH (10:11)
[2021-10-20] MEDS: PERPHENAZINE 4 MG TABLET PO SCH (10:12)
[2021-10-20] MEDS: LISINOPRIL 5 MG TABLET PO SCH (10:12)
[2021-10-20] MEDS: FLUoxetine HCL 20 MG CAPSULE PO SCH (10:12)
[2021-10-20] MEDS: NICOTINE 14 MG/24 HOURS TOPICAL PATCH TD SCH (10:12)
[2021-10-20] MEDS: ENOXAPARIN NA (PORCINE) 100 MG/1 ML DISP.SYRIN SQ SCH (11:32)
[2021-10-20 13:04] VITALS: BP 132/81; PULSE 80; TEMP 97.3
== END 2021-10-20 13:02 | disposition other institution (70) | DRG 773 ==
LOC: YASAS 15:49 → Y6N 19:57
PROVIDERS: ADMIT Allergy & Immunology; ATTEND Allergy & Immunology
PROC: HZ2ZZZZ Detoxification Services for Substance Abuse Treatment (ICD-10-PCS; principal; 2021-10-15)
DX: F11.23 Opioid dependence with withdrawal (principal); F10.230 Alcohol dependence with withdrawal, uncomplicated; F17.210 Nicotine dependence, cigarettes, uncomplicated; F25.9 Schizoaffective disorder, unspecified; F19.282 Other psychoactive substance dependence with psychoactive substance-induced sleep disorder; F19.280 Other psychoactive substance dependence with psychoactive substance-induced anxiety disorder; F43.10 Post-traumatic stress disorder, unspecified; E78.5 Hyperlipidemia, unspecified; E11.9 Type 2 diabetes mellitus without complications; Z79.84 Long term (current) use of oral hypoglycemic drugs; D68.59 Other primary thrombophilia; I10 Essential (primary) hypertension; J45.20 Mild intermittent asthma, uncomplicated; R56.9 Unspecified convulsions; Z62.810 Personal history of physical and sexual abuse in childhood; Z86.718 Personal history of other venous thrombosis and embolism; Z79.01 Long term (current) use of anticoagulants; Z86.711 Personal history of pulmonary embolism; Z86.16 Personal history of COVID-19; Z85.72 Personal history of non-Hodgkin lymphomas; Z91.410 Personal history of adult physical and sexual abuse; Z88.8 Allergy status to other drugs, medicaments and biological substances; Z88.7 Allergy status to serum and vaccine; Z88.0 Allergy status to penicillin
CPT/HCPCS: 36415; 80053; 82962; 85027; 86780; 87389; C9803; U0003; U0005

== ENCOUNTER 2021-10-20 13:24 | Inpatient (IN) | payer OTHER ==
[2021-10-20] MEDS ORDERED: ALBUTEROL SO4 2.5/IPRATROPIUM 0.5 INH SOL 3 ML VIAL.NEB. NEB PRN (14:09)
[2021-10-20] MEDS ORDERED: ALBUTEROL SO4 HFA INHALER IH PRN (14:09)
[2021-10-20] MEDS ORDERED: MAGNESIUM CITRATE 300 ML BOTTLE PO PRN (14:12)
[2021-10-20] MEDS ORDERED: ACETAMINOPHEN 325 MG TABLET (FP) PO PRN (14:12)
[2021-10-20] MEDS ORDERED: MAGNESIUM HYDROX 2400MG/30ML ORAL SUSPENSION 30 ML CUP PO PRN (14:12)
[2021-10-20] MEDS ORDERED: IBUPROFEN 400 MG TABLET (FP) PO PRN (14:12)
[2021-10-20] MEDS ORDERED: NICOTINE 10 MG CARTRIDGE (INHALER) IH PRN (14:12)
[2021-10-20] MEDS ORDERED: MAG HYDROX/AL HYDROX/SIMETH 30 ML UNIT-DOSE CUP PO PRN (14:12)
[2021-10-20] MEDS ORDERED: LOPERAMIDE HCL 2 MG CAPSULE PO PRN (14:12)
[2021-10-20] MEDS ORDERED: P-EPHED 60MG/TRIPROLIDI 2.5MG TABLET PO PRN (14:12)
[2021-10-20] MEDS ORDERED: guaiFENesin 200 MG/10 ML 10 ML UNIT-DOSE CUPS PO PRN (14:12)
[2021-10-20] MEDS ORDERED: MENTHOL/PHENOL 1 EACH UD MM PRN (14:12)
[2021-10-20] MEDS ORDERED: INSULIN SLIDING SCALE (NOVOLOG) 1 VIAL SQ SCH (16:30)
[2021-10-20] MEDS: glipiZIDE 5 MG TABLET (FP) PO SCH (17:13)
[2021-10-20] MEDS: INSULIN SLIDING SCALE (NOVOLOG) 1 VIAL SQ SCH (17:15)
[2021-10-20] MEDS ORDERED: hydrOXYzine PAMOATE 25 MG CAPSULE (FP) PO SCH (18:00)
[2021-10-20] MEDS: ATORVASTATIN CA 20 MG TABLET (FP) PO SCH (21:18)
[2021-10-20] MEDS: MELATONIN 5 MG TABLETS PO SCH (21:18)
[2021-10-20] MEDS: THIAMINE HCL 100 MG TABLET (FP) PO SCH (21:19)
[2021-10-20] MEDS: ENOXAPARIN NA (PORCINE) 100 MG/1 ML DISP.SYRIN SQ SCH (21:20)
[2021-10-20] MEDS: QUEtiapine FUMARATE 100 MG TABLET (FP) PO SCH (21:21)
[2021-10-21] MEDS: glipiZIDE 5 MG TABLET (FP) PO SCH ×2 (06:27→16:40)
[2021-10-21] MEDS: INSULIN SLIDING SCALE (NOVOLOG) 1 VIAL SQ SCH ×2 (06:28→16:41)
[2021-10-21] MEDS: FLUoxetine HCL 20 MG CAPSULE PO SCH (09:29)
[2021-10-21] MEDS: ENOXAPARIN NA (PORCINE) 100 MG/1 ML DISP.SYRIN SQ SCH ×2 (09:29→21:37)
[2021-10-21] MEDS: LISINOPRIL 5 MG TABLET PO SCH (09:29)
[2021-10-21] MEDS: PERPHENAZINE 4 MG TABLET PO SCH (09:29)
[2021-10-21] MEDS: PRENATAL VITAMINS W/ FOLIC ACID TABLET (FP) PO SCH (09:29)
[2021-10-21] MEDS ORDERED: NICOTINE 7 MG/24 HOURS TOPICAL PATCH TD SCH (10:00)
[2021-10-21] MEDS ORDERED: PERPHENAZINE 4 MG TABLET PO SCH (10:00)
[2021-10-21] MEDS: hydrOXYzine PAMOATE 25 MG CAPSULE (FP) PO PRN ×2 (17:08→21:23)
[2021-10-21] MEDS: ATORVASTATIN CA 20 MG TABLET (FP) PO SCH (21:22)
[2021-10-21] MEDS: MELATONIN 5 MG TABLETS PO SCH (21:22)
[2021-10-21] MEDS: THIAMINE HCL 100 MG TABLET (FP) PO SCH (21:22)
[2021-10-21] MEDS: QUEtiapine FUMARATE 100 MG TABLET (FP) PO SCH (21:22)
[2021-10-22] MEDS: glipiZIDE 5 MG TABLET (FP) PO SCH ×2 (06:06→16:27)
[2021-10-22] MEDS: INSULIN SLIDING SCALE (NOVOLOG) 1 VIAL SQ SCH ×2 (06:54→16:27)
[2021-10-22] MEDS: LISINOPRIL 5 MG TABLET PO SCH (09:27)
[2021-10-22] MEDS: PRENATAL VITAMINS W/ FOLIC ACID TABLET (FP) PO SCH (09:27)
[2021-10-22] MEDS: FLUoxetine HCL 20 MG CAPSULE PO SCH (09:28)
[2021-10-22] MEDS: ENOXAPARIN NA (PORCINE) 100 MG/1 ML DISP.SYRIN SQ SCH ×2 (09:29→21:10)
[2021-10-22] MEDS: PERPHENAZINE 4 MG TABLET PO SCH ×2 (09:29→21:10)
[2021-10-22] MEDS: hydrOXYzine PAMOATE 25 MG CAPSULE (FP) PO PRN (09:29)
[2021-10-22] MEDS ORDERED: QUEtiapine FUMARATE 50 MG TABLET ONE (19:04)
[2021-10-22] MEDS: MELATONIN 5 MG TABLETS PO SCH (21:09)
[2021-10-22] MEDS: THIAMINE HCL 100 MG TABLET (FP) PO SCH (21:09)
[2021-10-22] MEDS: QUEtiapine FUMARATE 100 MG TABLET (FP) PO SCH (21:09)
[2021-10-22] MEDS: ATORVASTATIN CA 20 MG TABLET (FP) PO SCH (21:09)
[2021-10-23] MEDS: glipiZIDE 5 MG TABLET (FP) PO SCH ×2 (06:47→17:22)
[2021-10-23] MEDS: INSULIN SLIDING SCALE (NOVOLOG) 1 VIAL SQ SCH ×2 (06:48→17:23)
[2021-10-23] MEDS: hydrOXYzine PAMOATE 25 MG CAPSULE (FP) PO PRN ×2 (09:38→20:08)
[2021-10-23] MEDS: LISINOPRIL 5 MG TABLET PO SCH (09:38)
[2021-10-23] MEDS: PRENATAL VITAMINS W/ FOLIC ACID TABLET (FP) PO SCH (09:38)
[2021-10-23] MEDS: ENOXAPARIN NA (PORCINE) 100 MG/1 ML DISP.SYRIN SQ SCH ×2 (09:38→22:06)
[2021-10-23] MEDS: FLUoxetine HCL 20 MG CAPSULE PO SCH (10:32)
[2021-10-23] MEDS: ATORVASTATIN CA 20 MG TABLET (FP) PO SCH (22:06)
[2021-10-23] MEDS: QUEtiapine FUMARATE 100 MG TABLET (FP) PO SCH (22:07)
[2021-10-23] MEDS: MELATONIN 5 MG TABLETS PO SCH (22:07)
[2021-10-23] MEDS: PERPHENAZINE 4 MG TABLET PO SCH (22:08)
[2021-10-23] MEDS: THIAMINE HCL 100 MG TABLET (FP) PO SCH (22:08)
[2021-10-24 06:08] LABS: SARS-CoV-2 NAA Not Detected (Not Detected)
[2021-10-24] MEDS: glipiZIDE 5 MG TABLET (FP) PO SCH ×2 (06:45→16:39)
[2021-10-24] MEDS: INSULIN SLIDING SCALE (NOVOLOG) 1 VIAL SQ SCH ×2 (06:45→16:40)
[2021-10-24 07:15] VITALS: TEMP 99
[2021-10-24] MEDS ORDERED: COLLOIDAL OATMEAL 1 BAR EACH TP PRN (08:57)
[2021-10-24] MEDS: FLUoxetine HCL 20 MG CAPSULE PO SCH (10:52)
[2021-10-24] MEDS: LISINOPRIL 5 MG TABLET PO SCH (10:52)
[2021-10-24] MEDS: PRENATAL VITAMINS W/ FOLIC ACID TABLET (FP) PO SCH (10:52)
[2021-10-24] MEDS: ENOXAPARIN NA (PORCINE) 100 MG/1 ML DISP.SYRIN SQ SCH ×2 (12:13→21:05)
[2021-10-24] MEDS: hydrOXYzine PAMOATE 25 MG CAPSULE (FP) PO PRN (17:59)
[2021-10-24] MEDS: ATORVASTATIN CA 20 MG TABLET (FP) PO SCH (21:05)
[2021-10-24] MEDS: PERPHENAZINE 4 MG TABLET PO SCH (21:05)
[2021-10-24] MEDS: QUEtiapine FUMARATE 100 MG TABLET (FP) PO SCH (21:05)
[2021-10-24] MEDS: MELATONIN 5 MG TABLETS PO SCH (21:05)
[2021-10-24] MEDS: THIAMINE HCL 100 MG TABLET (FP) PO SCH (21:05)
[2021-10-25] MEDS: glipiZIDE 5 MG TABLET (FP) PO SCH (06:18)
[2021-10-25] MEDS: INSULIN SLIDING SCALE (NOVOLOG) 1 VIAL SQ SCH (06:19)
[2021-10-25 07:04] VITALS: BP 131/81; PULSE 86
[2021-10-25] MEDS: PRENATAL VITAMINS W/ FOLIC ACID TABLET (FP) PO SCH (09:42)
[2021-10-25] MEDS: LISINOPRIL 5 MG TABLET PO SCH (09:43)
[2021-10-25] MEDS: FLUoxetine HCL 20 MG CAPSULE PO SCH (09:43)
[2021-10-25] MEDS: ENOXAPARIN NA (PORCINE) 100 MG/1 ML DISP.SYRIN SQ SCH (09:44)
== END 2021-10-25 09:58 | disposition home or self-care (01) | DRG 772 ==
LOC: YASAS 13:24 → Y3W 13:27
PROVIDERS: ADMIT Allergy & Immunology; ATTEND Allergy & Immunology
PROC: HZ42ZZZ Group Counseling for Substance Abuse Treatment, Cognitive-Behavioral (ICD-10-PCS; principal; 2021-10-20)
DX: F11.20 Opioid dependence, uncomplicated (principal); F10.20 Alcohol dependence, uncomplicated; F17.210 Nicotine dependence, cigarettes, uncomplicated; F20.9 Schizophrenia, unspecified; F43.10 Post-traumatic stress disorder, unspecified; F32.A Depression, unspecified; J45.909 Unspecified asthma, uncomplicated; E11.9 Type 2 diabetes mellitus without complications; Z79.84 Long term (current) use of oral hypoglycemic drugs; D68.59 Other primary thrombophilia; Z86.711 Personal history of pulmonary embolism; Z79.01 Long term (current) use of anticoagulants; Z86.718 Personal history of other venous thrombosis and embolism; Z85.72 Personal history of non-Hodgkin lymphomas; Z86.69 Personal history of other diseases of the nervous system and sense organs; Z88.0 Allergy status to penicillin; Z88.7 Allergy status to serum and vaccine; Z88.8 Allergy status to other drugs, medicaments and biological substances
CPT/HCPCS: 82962; C9803-CS; U0003; U0005